=== PATIENT | female | born 1970 | race Caucasian/White ===

== ENCOUNTER 2017-03-16 17:04 | Emergency (ER) | payer OTHER ==
[~2017-03-16] VITALS: Ht 154.9 cm; Wt 100.0 kg
[~2017-03-16 17:04] MED LIST: ALBU1AER INH; ALBU8I INH; CETI10 PO; CYMB60CA PO; FLOV110A INH; HYOS0.129 PO; LIPI20TA PO; MEDR4PAK3 PO; NEUR300C PO; OXYC1SOL5 PO; PANT40IN3 PO; PHEN30TA32 PO; PROM25TA5 PO; SERO100T PO; VITA200017 PO; VITA500T49 PO; XANA1TAB6 PO
[2017-03-16 17:05] VITALS: BP 144/100; PULSE 124; RESP 24; TEMP 97.7; O2SAT 92
--- NOTE | 2017-03-16 17:21 | PD ---
HPI . Swallowed an open safety pin earlier today Chief Complaint: Foreign Body Time Seen by Provider: 17:16 Travel History International Travel<30 days: No Contact w/Intl Traveler<30days: No Traveled to known affect area: No History of Present Illness HPI 46-year-old female with multiple medical problems including seizure disorder, hyperlipidemia, restless leg syndrome, rheumatoid arthritis, bipolar disorder, anxiety here with complaints of swallowing an open safety pin earlier today. Patient tells me that her daughter was trying to pierced tip of her tongue when the patient jumped, therefore causing the daughter to jump. The open safety pin then lodged into her throat and she asked that we swallowed it. He immediately felt something poking her in her throat. She started drinking large amounts of water and thinks that she has consumed over a gallon worth of water. She tells me she has since he in 3 [employer] sandwiches and she continues to experience pain in her throat and chest. She describes it as a sharp pain rated 8/10 on a pain scale. She says she came to the emergency room because the pain would not subside. She denies any other associated symptoms. PFSH Past Medical History Hx Anticoagulant Therapy: No Asthma: Yes Bipolar Disorder: Yes (manic depressive) Anxiety: Yes Depression: Yes Heart Rhythm Problems: Yes (PALPITATIONS, TACHY) Cancer: No Cardiac Catheterization: Yes Cardiovascular Problems: Yes (CARDIAC CATH NO STENTS) High Cholesterol: Yes Chemotherapy: No Chest Pain: Yes Congestive Heart Failure: No Cerebrovascular Accident: No Diabetes: No Diminished Hearing: No Diverticulitis: Yes Endocrine: No Fibromyalgia: Yes Gastrointestinal Disorders: Yes (GI BLEED) Genitourinary: Yes Hypertension: Yes Immune Disorder: No Implanted Vascular Access Dvce: Yes Kidney Stones: Yes Musculoskeletal: Yes (BILAT FOOT/ANKLE SURGERIES, FX'D RIGHT 8 TIMES) Neurologic: Yes (SEIZURES AFTER HEAD INJURY 2010, MIGRAINES) Psychiatric: Yes Reproductive: No Respiratory: Yes (ASTHMA) Immunizations Current: Yes Migraines: Yes Seizures: Yes Ulcer: Yes (peptic) ?: Not Dilation and Curettage (D&C): Yes Past Surgical History Abdominal Surgery: Yes (BLADDER SLING REMOVAL, oophorectomy) Appendectomy: Yes Body Medical Devices: RIGHT BLADDER MESH STILL IN Cholecystectomy: Yes Hysterectomy: Yes Other Surgery: Yes (BILAT FOOT AND ANKLE SURGERIES, RIGHT JAW, cervical rib ) Social History Alcohol Use: Yes (RARELY) Tobacco Use: No (quit) Substance Use: No Allergies-Medications (Allergen,Severity, Reaction): Coded Allergies: Cipro (Verified Allergy, Severe, Hives, 03/16/17) Contrast Media (Verified Allergy, Severe, Hives, 03/16/17) Diazepam (Verified Allergy, Severe, Hives, 03/16/17) Geodon (Verified Allergy, Severe, swelling of face , 03/16/17) Macrobid (Verified Allergy, Severe, Hives, 03/16/17) Penicillin (Verified Allergy, Severe, Anaphylaxis, 03/16/17) Reglan (Verified Allergy, Severe, Seizures, 03/16/17) Shellfish (Verified Allergy, Severe, Anaphylaxis, 03/16/17) Sulfa (Verified Allergy, Severe, Anaphylaxis, 03/16/17) Ultram (Verified Allergy, Severe, Hives, 03/16/17) Toradol (Verified Allergy, Intermediate, HIVES, 03/16/17) Topamax (Unverified Allergy, Mild, 03/16/17) Doxycycline (Verified Allergy, Unknown, Itching, 03/16/17) Nonsteroidal Anti-Inflammatory Agts (Verified Allergy, Unknown, Hives, 07/23) Uncoded Allergies: PROVACHOL (Allergy, Intermediate, RASH, 02/09/16) Reported Meds & Prescriptions Reported Meds & Active Scripts Active Reported Aspirin 81 Mg Chew 81 Mg CHEW DAILY Proair Hfa 8.5 GM Inh (Albuterol Sulfate) 90 Mcg/Act Aer 2 Puff INH BID PRN 108 mcg/actuation Phenobarbital 32.4 Mg Tab 32.4 Mg PO BID Lopid (Gemfibrozil) 600 Mg Tab 600 Mg PO BIDAC Take 30 minutes prior to breakfast and dinner Tegretol (Carbamazepine) 200 Mg Tab 200 Mg PO BID Cymbalta DR (Duloxetine HCl) 60 Mg Capdr 60 Mg PO BID Hyoscyamine (Hyoscyamine Sulfate) 0.125 Mg Tab 0.125 Mg PO DAILY Klonopin (Clonazepam) 0.5 Mg Tab 0.5 Mg PO BID Neurontin (Gabapentin) 300 Mg Cap 300 Mg PO BID Famotidine 10 Mg Tab 10 Mg PO BID Phenobarbital 32.4 Mg Tab 32.4 Mg PO BID Review of Systems General / Constitutional: No: Fever Eyes: No: Visual changes HENT: Positive: Sore Throat, No: Headaches Cardiovascular: Positive: Other (chest burning), No: Chest Pain or Discomfort Respiratory: No: Shortness of Breath Gastrointestinal: No: Abdominal Pain Genitourinary: No: Dysuria Musculoskeletal: No: Pain Skin: No Rash Neurologic: No: Weakness Psychiatric: No: Depression Endocrine: No: Polydipsia Hematologic/Lymphatic: No: Easy Bruising Physical Exam Narrative GENERAL: AAO x 3, no acute distress, Well-nourished, well-developed patient. SKIN: Warm and dry. No visible rashes or bruising. HEAD: Normocephalic and atraumatic. EYES: No scleral icterus. No injection or drainage. EOM intact, PERRLA ENT: No nasal drainage noted. Mucous membranes pink. Airway patent. No oropharynx abnormality. NECK: Supple, trachea midline. No JVD. No tenderness to palpation. CARDIOVASCULAR: Regular rate and rhythm without murmurs, gallops, or rubs. RESPIRATORY: Breath sounds equal bilaterally. No accessory muscle use. No rhonchi or rales. GASTROINTESTINAL: Abdomen soft, epigastric tenderness on palpation. EXTREMITIES: No cyanosis or edema. BACK: Nontender without obvious deformity. No CVA tenderness. NEURO: CN II-12 intact, PSYCH: AAO x 3, normal affect. Data Data Last Documented VS Vital Signs Date Time Temp Pulse Resp B/P Pulse Ox O2 Delivery O2 Flow Rate FiO2 03/16/17 19:21 85 18 123/60 99 Room Air 03/16/17 17:05 97.7 Orders Basic Metabolic Panel (Bmp) (03/16/17 17:21) Complete Blood Count With Diff (03/16/17 17:21) Prothrombin Time / Inr (Pt) (03/16/17 17:21) Act Partial Throm Time (Ptt) (03/16/17 17:21) Iv Access Insert/Monitor (03/16/17 17:21) NPO (03/16/17 17:21) Chest, Pa & Lat (03/16/17 ) Vascular Access Team Consult/P PRN (03/16/17 18:18) Vascular Poc Ultrasound (03/16/17 ) Ondansetron Inj (Zofran Inj) (03/16/17 19:15) Morphine Inj (Morphine Inj) (03/16/17 19:15) Labs Laboratory Tests Test 03/16/17 03/16/17 19:04 19:33 White Blood Count 6.3 TH/MM3 Red Blood Count 4.05 MIL/MM3 Hemoglobin 11.4 GM/DL Hematocrit 34.8 % Mean Corpuscular Volume 85.9 FL Mean Corpuscular Hemoglobin 28.1 PG Mean Corpuscular Hemoglobin 32.7 % Concent Red Cell Distribution Width 13.1 % Platelet Count 164 TH/MM3 Mean Platelet Volume 10.0 FL Neutrophils (%) (Auto) 56.5 % Lymphocytes (%) (Auto) 35.5 % Monocytes (%) (Auto) 7.4 % Eosinophils (%) (Auto) 0.1 % Basophils (%) (Auto) 0.5 % Neutrophils # (Auto) 3.5 TH/MM3 Lymphocytes # (Auto) 2.2 TH/MM3 Monocytes # (Auto) 0.5 TH/MM3 Eosinophils # (Auto) 0.0 TH/MM3 Basophils # (Auto) 0.0 TH/MM3 CBC Comment DIFF FINAL Differential Comment Sodium Level 142 MEQ/L Potassium Level 3.2 MEQ/L Chloride Level 112 MEQ/L Carbon Dioxide Level 18.7 MEQ/L Anion Gap 11 MEQ/L Blood Urea Nitrogen 9 MG/DL Creatinine 0.49 MG/DL Estimat Glomerular Filtration 136 ML/MIN Rate Random Glucose 87 MG/DL Calcium Level 7.5 MG/DL Prothrombin Time 11.0 SEC Prothromb Time International 1.0 RATIO Ratio Activated Partial 24.0 SEC Thromboplast Time MDM Medical Decision Making Medical Screen Exam Complete: Yes Emergency Medical Condition: Yes Medical Record Reviewed: Yes Differential Diagnosis Ingestion of foreign body, hyponatremia, Narrative Course 46-year-old female here after swallowing an open safety pin. Labs and x-rays have been ordered. IV access team had to be contacted for placement of line as patient was a difficult stick for nursing staff. This delayed her labs a little bit. CXR shows pin in the esophagus. Dr. Gonzalez has discussed with GI and they will take patient to endoscopy to remove. Patient given Morphine and Zofran. 2000: Patient taken to GI lab. Diagnosis Primary Impression: Foreign body in throat Qualified Code: T17.208A - Foreign body in throat, initial encounter Condition: Stable Shanna Ramirez Mar 16, 2017 17:21
[2017-03-16] MEDS ORDERED: HYOS0.128 PO (17:31)
[2017-03-16] MEDS ORDERED: GEMF600 PO (17:31)
[2017-03-16] MEDS ORDERED: PHEN-414 PO (17:31)
[2017-03-16] MEDS ORDERED: TEGR200T PO (17:31)
[2017-03-16] MEDS ORDERED: ALBUAER3 INH (17:31)
[2017-03-16] MEDS ORDERED: NEUR300C PO (17:31)
[2017-03-16] MEDS ORDERED: CYMB60CA PO (17:31)
[2017-03-16] MEDS ORDERED: CLON.5 PO (17:31)
[2017-03-16] MEDS ORDERED: FAMO1TAB30 PO (17:31)
[2017-03-16] MEDS ORDERED: ASPI81CH CHEW (17:34)
--- NOTE | 2017-03-16 17:38 | PD ---
Physical Exam Narrative Patient was seen and examined with my medical staff assistant. Data Data Last Documented VS Vital Signs Date Time Temp Pulse Resp B/P Pulse Ox O2 Delivery O2 Flow Rate FiO2 03/16/17 21:30 98.0 83 15 100/62 96 Room Air 03/16/17 20:46 2 Orders Basic Metabolic Panel (Bmp) (03/16/17 17:21) Complete Blood Count With Diff (03/16/17 17:21) Prothrombin Time / Inr (Pt) (03/16/17 17:21) Act Partial Throm Time (Ptt) (03/16/17 17:21) Iv Access Insert/Monitor (03/16/17 17:21) NPO (03/16/17 17:21) Chest, Pa & Lat (03/16/17 ) Vascular Access Team Consult/P PRN (03/16/17 18:18) Vascular Poc Ultrasound (03/16/17 ) Ondansetron Inj (Zofran Inj) (03/16/17 19:15) Morphine Inj (Morphine Inj) (03/16/17 19:15) Panendo (03/16/17 ) [facility] Nursing Information (03/16/17 20:45) Propofol 200 Mg/20 Ml Inj (Diprivan 200 (03/16/17 20:33) Sodium Chloride 0.9% Flush (Ns Flush) (03/17/17 09:00) Sodium Chloride 0.9% Flush (Ns Flush) (03/16/17 21:15) Clonazepam (Klonopin) (03/16/17 21:00) Carbamazepine (Tegretol) (03/16/17 21:00) Gemfibrozil (Lopid) (03/17/17 07:00) Famotidine (Pepcid) (03/16/17 21:00) Gabapentin (Neurontin) (03/16/17 21:00) Phenobarbital (Phenobarbital) (03/16/17 21:00) Class V Pacu Ea 30 Min (03/16/17 ) General/Pacu (03/16/17 ) Post Anesthesia Oxygen (03/16/17 ) Attending Discharge Order (03/16/17 ) Admit Order (Ed Use Only) (03/16/17 20:00) Labs Laboratory Tests Test 03/16/17 03/16/17 19:04 19:33 White Blood Count 6.3 TH/MM3 Red Blood Count 4.05 MIL/MM3 Hemoglobin 11.4 GM/DL Hematocrit 34.8 % Mean Corpuscular Volume 85.9 FL Mean Corpuscular Hemoglobin 28.1 PG Mean Corpuscular Hemoglobin 32.7 % Concent Red Cell Distribution Width 13.1 % Platelet Count 164 TH/MM3 Mean Platelet Volume 10.0 FL Neutrophils (%) (Auto) 56.5 % Lymphocytes (%) (Auto) 35.5 % Monocytes (%) (Auto) 7.4 % Eosinophils (%) (Auto) 0.1 % Basophils (%) (Auto) 0.5 % Neutrophils # (Auto) 3.5 TH/MM3 Lymphocytes # (Auto) 2.2 TH/MM3 Monocytes # (Auto) 0.5 TH/MM3 Eosinophils # (Auto) 0.0 TH/MM3 Basophils # (Auto) 0.0 TH/MM3 CBC Comment DIFF FINAL Differential Comment Sodium Level 142 MEQ/L Potassium Level 3.2 MEQ/L Chloride Level 112 MEQ/L Carbon Dioxide Level 18.7 MEQ/L Anion Gap 11 MEQ/L Blood Urea Nitrogen 9 MG/DL Creatinine 0.49 MG/DL Estimat Glomerular Filtration 136 ML/MIN Rate Random Glucose 87 MG/DL Calcium Level 7.5 MG/DL Prothrombin Time 11.0 SEC Prothromb Time International 1.0 RATIO Ratio Activated Partial 24.0 SEC Thromboplast Time [facility] Supervised Visit with SOHA: Yes Narrative Course Patient was taken to GI lab for endoscopy and discharged from there. Patient will be admitted to same day care. Diagnosis Primary Impression: Foreign body in esophagus Qualified Code: T18.108A - Foreign body in esophagus, initial encounter Condition: Stable Kristian Gonzalez MD Mar 16, 2017 17:38
--- NOTE | 2017-03-16 18:06 | RADRPT ---
EXAM DATE/TIME: 03/16/2017 17:42 [place] COMPARISON: No previous studies available for comparison. INDICATIONS : Foreign body, Patient swallowed a saftey pin MEDICAL HISTORY : None. SURGICAL HISTORY : None. ENCOUNTER: Initial ACUITY: 1 day PAIN SCORE: 10/10 LOCATION: Bilateral chest FINDINGS: PA and lateral views of the chest demonstrate the lungs to be symmetrically aerated without evidence of mass, infiltrate or effusion. A metallic foreign body consistent with a safety pin is seen lodged within the thoracic esophagus just cephalad to the aortic arch level. The pointed end appears embedde d within the wall anteriorly and may enter the posterior wall of the trachea. The cardiomediastinal contours are unremarkable. Osseous structures are intact. CONCLUSION: 1. Foreign body within the thoracic esophagus as detailed above. Alon Underwood Jr., MD on March 16, 2017 at 18:02 Board Certified Radiologist. This report was verified electronically.
[2017-03-16] MEDS ORDERED: MORPHINE SULFATE 4 MG/ML INJ IV PUSH ONE (19:15)
[2017-03-16] MEDS ORDERED: ONDANSETRON HCL 4 MG/2 ML VIAL IV PUSH ONE (19:15)
[2017-03-16 19:21] VITALS: BP 123/60; PULSE 85; RESP 18; O2SAT 99
[2017-03-16 19:21] LABS: AUTOMATED NEUTROPHIL # 3.5 TH/MM3 (1.8-7.7); BASOPHIL % 0.5 % (0.0-2.0); EOSINOPHIL % 0.1 % (0.0-4.0); HEMATOCRIT 34.8 % (35.0-46.0); HEMO FLAGS DIFF FINAL; LYMPH % 35.5 % (9.0-44.0); LYMPHOCYTE # 2.2 TH/MM3 (1.0-4.8); MEAN CELL VOLUME 85.9 FL (80.0-100.0); MEAN CORPUSCULAR HEMOGLOBIN 28.1 PG (27.0-34.0); MEAN CORPUSCULAR HGB CONC 32.7 % (32.0-36.0); MONO % 7.4 % (0.0-8.0); NEUT % 56.5 % (16.0-70.0); PLATELET COUNT 164 TH/MM3 (150-450); RED BLOOD COUNT 4.05 MIL/MM3 (4.00-5.30); RED CELL DISTRIBUTION WIDTH 13.1 % (11.6-17.2); WHITE BLOOD COUNT 6.3 TH/MM3 (4.0-11.0)
[2017-03-16 19:58] LABS: BICARBONATE 18.7 MEQ/L (21.0-32.0); POTASSIUM 3.2 MEQ/L (3.5-5.1)
[2017-03-16] MEDS ORDERED: PROPOFOL 200 MG/20 ML AMP IV ONE (20:33)
[2017-03-16] MEDS ORDERED: DO NOT ADM ANY ANTICOAGULANT DRUGS PRN (20:45)
--- NOTE | 2017-03-16 20:53 | PD.CONS ---
HPI History of Present Illness This is a 46 year old female who presents to the emergency department with complaints of having swallowed a safety pen that was open she complains of chest pain this is her first time she does have history of reflux and takes famotidine but denies any history of dysphagia she does report that she had recently eaten 3 sandwiches [facility] Past Medical History seizure disorder, hyperlipidemia, restless leg syndrome, rheumatoid arthritis, bipolar disorder, anxiety Past Surgical History Abdominal Surgery: Yes (BLADDER SLING REMOVAL, oophorectomy) Appendectomy: Yes Body Medical Devices: RIGHT BLADDER MESH STILL IN Cholecystectomy: Yes Hysterectomy: Yes Other Surgery: Yes (BILAT FOOT AND ANKLE SURGERIES, RIGHT JAW, cervical rib ) Coded Allergies: Cipro (Verified Allergy, Severe, Hives, 03/16/17) Contrast Media (Verified Allergy, Severe, Hives, 03/16/17) Diazepam (Verified Allergy, Severe, Hives, 03/16/17) Geodon (Verified Allergy, Severe, swelling of face , 03/16/17) Macrobid (Verified Allergy, Severe, Hives, 03/16/17) Penicillin (Verified Allergy, Severe, Anaphylaxis, 03/16/17) Reglan (Verified Allergy, Severe, Seizures, 03/16/17) Shellfish (Verified Allergy, Severe, Anaphylaxis, 03/16/17) Sulfa (Verified Allergy, Severe, Anaphylaxis, 03/16/17) Ultram (Verified Allergy, Severe, Hives, 03/16/17) Toradol (Verified Allergy, Intermediate, HIVES, 03/16/17) Topamax (Unverified Allergy, Mild, 03/16/17) Doxycycline (Verified Allergy, Unknown, Itching, 03/16/17) Nonsteroidal Anti-Inflammatory Agts (Verified Allergy, Unknown, Hives, 07/23) Uncoded Allergies: PROVACHOL (Allergy, Intermediate, RASH, 02/09/16) Medications Aspirin 81 Mg Chew 81 Mg CHEW DAILY Proair Hfa 8.5 GM Inh (Albuterol Sulfate) 90 Mcg/Act Aer 2 Puff INH BID PRN 108 mcg/actuation Phenobarbital 32.4 Mg Tab 32.4 Mg PO BID Lopid (Gemfibrozil) 600 Mg Tab 600 Mg PO BIDAC Take 30 minutes prior to breakfast and dinner Tegretol (Carbamazepine) 200 Mg Tab 200 Mg PO BID Cymbalta DR (Duloxetine HCl) 60 Mg Capdr 60 Mg PO BID Hyoscyamine (Hyoscyamine Sulfate) 0.125 Mg Tab 0.125 Mg PO DAILY Klonopin (Clonazepam) 0.5 Mg Tab 0.5 Mg PO BID Neurontin (Gabapentin) 300 Mg Cap 300 Mg PO BID Famotidine 10 Mg Tab 10 Mg PO BID Phenobarbital 32.4 Mg Tab 32.4 Mg PO BID Family History Noncontributory Social History Rarely drinks alcohol but does not smoke Review of Systems ROS Review of systems Patient denies any headache dizziness blurry vision, denies any shortness of breath cough fever chills, Denies any palpitations or fatigue denies any polyuria dysuria hematuria, denies any numbness tingling or weakness, denies any skin rash pruritus or jaundice, denies any easy bruising or bleeding tendency, denies any recent change in mood GI Exam Vitals I&O Vital Signs Date Time Temp Pulse Resp B/P Pulse Ox O2 Delivery O2 Flow Rate FiO2 03/16/17 19:21 85 18 123/60 99 Room Air 03/16/17 17:05 97.7 124 24 144/100 92 Room Air Imaging Last 48 hours Impressions Chest X-Ray 03/16/17 0000 Signed Impressions: Service Date/Time: Thursday, March 16, 2017 17:42 - CONCLUSION: 1. Foreign body within the thoracic esophagus as detailed above. Alon Underwood Jr., MD Laboratory Test 03/16/17 03/16/17 19:04 19:33 White Blood Count 6.3 TH/MM3 Red Blood Count 4.05 MIL/MM3 Hemoglobin 11.4 GM/DL Hematocrit 34.8 % Mean Corpuscular Volume 85.9 FL Mean Corpuscular Hemoglobin 28.1 PG Mean Corpuscular Hemoglobin 32.7 % Concent Red Cell Distribution Width 13.1 % Platelet Count 164 TH/MM3 Mean Platelet Volume 10.0 FL Neutrophils (%) (Auto) 56.5 % Lymphocytes (%) (Auto) 35.5 % Monocytes (%) (Auto) 7.4 % Eosinophils (%) (Auto) 0.1 % Basophils (%) (Auto) 0.5 % Neutrophils # (Auto) 3.5 TH/MM3 Lymphocytes # (Auto) 2.2 TH/MM3 Monocytes # (Auto) 0.5 TH/MM3 Eosinophils # (Auto) 0.0 TH/MM3 Basophils # (Auto) 0.0 TH/MM3 CBC Comment DIFF FINAL Differential Comment Sodium Level 142 MEQ/L Potassium Level 3.2 MEQ/L Chloride Level 112 MEQ/L Carbon Dioxide Level 18.7 MEQ/L Anion Gap 11 MEQ/L Blood Urea Nitrogen 9 MG/DL Creatinine 0.49 MG/DL Estimat Glomerular Filtration 136 ML/MIN Rate Random Glucose 87 MG/DL Calcium Level 7.5 MG/DL Prothrombin Time 11.0 SEC Prothromb Time International 1.0 RATIO Ratio Activated Partial 24.0 SEC Thromboplast Time Physical Examination HEENT: Pupils round and reactive to light; normocephalic; atraumatic; no jaundice. Throat is clear. NECK: Neck is supple, no JVD, no lymphadenopathy. CHEST: Chest is clear to auscultation and percussion. CARDIAC: Regular rate and rhythm with no murmur gallop or rubs. ABDOMEN: Soft, nondistended, nontender; no hepatosplenomegaly; bowel sounds are present in all four quadrants. EXTREMITIES: No clubbing, cyanosis, or edema. SKIN: Normal; no rash; no jaundice. SAFETY ADMINISTRATOR: No focal deficits; alert and oriented times three. Assessment and Plan Plan Foreign body in the esophagus We will plan on an EGD Further recommendations shall depend on the findings Rajinder Corona MD Mar 16, 2017 20:53
--- NOTE | 2017-03-16 20:55 | PD.PROCEDR ---
GI Procedure REFERRING PHYSICIAN Emergency department PROCEDURE PERFORMED EGD with foreign body extraction INDICATION FOR PROCEDURE Informed body in the esophagus PROCEDURE: The procedure, risks and benefits were discussed with Ms. Machuca and informed consent was obtained. Anesthesia sedated her with Diprivan. She was placed in the left lateral decubitus position. EGD: The Pentax videoscope was introduced through the oropharynx and advanced to the second portion of the duodenum under direct visualization. Retroflexion was performed in the stomach. FINDINGS: The esophagus there was an open pin facing downwards and it had partially pierced the esophageal wall this was easily removed using a rat-tooth following removal esophageal wall was intact and unremarkable all the way down to the Z line The stomach there was still some residual food but otherwise gastric mucosa was unremarkable Duodenum this was normal ESTIMATED BLOOD LOSS: None SPECIMENS REMOVED: None COMPLICATIONS: None IMPRESSION: Esophageal foreign body PLAN: Postanesthesia monitor Resume home meds Okay for discharge once fully recovered Rajinder Corona MD Mar 16, 2017 20:55
[2017-03-16] MEDS ORDERED: clonazePAM 0.5 MG TAB PO SCH (21:00)
[2017-03-16] MEDS ORDERED: carBAMazepine 200 MG TAB PO SCH (21:00)
[2017-03-16] MEDS ORDERED: PHENobarbital 32.4 MG TAB PO SCH (21:00)
[2017-03-16] MEDS ORDERED: FAMOTIDINE 20 MG TAB PO SCH (21:00)
[2017-03-16] MEDS ORDERED: GABAPENTIN 300 MG CAP PO SCH (21:00)
[2017-03-16] MEDS ORDERED: SODIUM CHLORIDE FLUSH PRN IV FLUSH (21:15)
[2017-03-16 21:30] VITALS: BP 100/62; PULSE 83; RESP 15; TEMP 98; O2SAT 96
[2017-03-17] MEDS ORDERED: GEMFIBROZIL 600 MG TAB PO SCH (07:00)
[2017-03-17] MEDS ORDERED: SODIUM CHLORIDE FLUSH BID IV FLUSH SCH (09:00)
== END 2017-03-16 22:43 | disposition home or self-care (01) ==
LOC: NEPD 17:04
PROC: 0DC58ZZ Extirpation of Matter from Esophagus, Via Natural or Artificial Opening Endoscopic (ICD-10-PCS; principal; 2017-03-16 20:05)
DX: T18.198A Other foreign object in esophagus causing other injury, initial encounter (principal); M79.7 Fibromyalgia; I10 Essential (primary) hypertension; M06.9 Rheumatoid arthritis, unspecified; G40.909 Epilepsy, unspecified, not intractable, without status epilepticus; X58.XXXA Exposure to other specified factors, initial encounter
CPT/HCPCS: 00740; 43247; 71020; 80048; 85025; 85610; 85730; 96374; 96375; 99285; J2270; J2405

== ENCOUNTER 2017-03-18 18:37 | Emergency (ER) | payer OTHER ==
[~2017-03-18] VITALS: Ht 154.9 cm; Wt 100.0 kg
[~2017-03-18 18:37] MED LIST changes: -ALBU1AER INH; -ALBU8I INH; +ALBUAER3 INH; +ASPI81CH CHEW; -CETI10 PO; +CLON.5 PO; +FAMO1TAB30 PO; -FLOV110A INH; +GEMF600 PO; +HYOS0.128 PO; -HYOS0.129 PO; -LIPI20TA PO; -MEDR4PAK3 PO; -OXYC1SOL5 PO; -PANT40IN3 PO; +PHEN-414 PO; -PHEN30TA32 PO; -PROM25TA5 PO; -SERO100T PO; +TEGR200T PO; -VITA200017 PO; -VITA500T49 PO; -XANA1TAB6 PO
[2017-03-18 18:38] VITALS: BP 135/92; PULSE 108; RESP 20; TEMP 98.7; O2SAT 94
--- NOTE | 2017-03-18 19:41 | PD ---
Physical Exam Date Seen by Provider: Mar 18, 2017 Time Seen by Provider: 19:39 Narrative 46 yo female here for evaluation of swollen "terence tack" on her abdomen. Swallow it by accident yesterday while trying to meyers her tongue. Minimal epigastric pain. 12/14. No BM issues. No bleeding. No other medical issues today. Vitals sign stable. Patient awaiting bed placement. Data Data Last Documented VS Vital Signs Date Time Temp Pulse Resp B/P Pulse Ox O2 Delivery O2 Flow Rate FiO2 03/18/17 18:38 98.7 108 20 135/92 94 Room Air [facility] Medical Record Reviewed: Yes Supervised Visit with SOHA: No Lawrence Valdes Mar 18, 2017 19:41
[2017-03-18] MEDS ORDERED: TIZA4CAP3 PO (20:54)
[2017-03-18] MEDS ORDERED: ESTR1TAB PO (20:54)
[2017-03-18] MEDS ORDERED: ALBUAER3 INH (20:54)
[2017-03-18] MEDS ORDERED: CYMB60CA PO (20:54)
[2017-03-18] MEDS ORDERED: GEMF600T PO (20:54)
[2017-03-18] MEDS ORDERED: LURA1TAB2 PO (20:54)
[2017-03-18] MEDS ORDERED: TEGR200T PO (20:54)
[2017-03-18] MEDS ORDERED: PHEN-414 PO (20:54)
[2017-03-18] MEDS ORDERED: FAMO20TA2 PO (20:54)
[2017-03-18] MEDS ORDERED: KLON2TAB PO (20:54)
[2017-03-18] MEDS ORDERED: MILKSUS PO (20:57)
== END 2017-03-18 21:14 | disposition left against medical advice (07) ==
LOC: NED 18:37
DX: T18.0XXA Foreign body in mouth, initial encounter (principal)
CPT/HCPCS: 99281

== ENCOUNTER 2017-03-18 20:16 | Observation (INO) | payer OTHER ==
[~2017-03-18] VITALS: Ht 154.9 cm; Wt 96.3 kg
[2017-03-18 20:21] VITALS: BP 140/90; PULSE 112; RESP 20; TEMP 99.2; O2SAT 96
[2017-03-18 20:35] VITALS: BP 137/74; PULSE 100; RESP 18; O2SAT 97
[2017-03-18] MEDS ORDERED: TEGR200T PO (20:54)
[2017-03-18] MEDS ORDERED: ALBUAER3 INH (20:54)
[2017-03-18] MEDS ORDERED: FAMO20TA2 PO (20:54)
[2017-03-18] MEDS ORDERED: GEMF600T PO (20:54)
[2017-03-18] MEDS ORDERED: ESTR1TAB PO (20:54)
[2017-03-18] MEDS ORDERED: LURA1TAB2 PO (20:54)
[2017-03-18] MEDS ORDERED: CYMB60CA PO (20:54)
[2017-03-18] MEDS ORDERED: KLON2TAB PO (20:54)
[2017-03-18] MEDS ORDERED: TIZA4CAP3 PO (20:54)
[2017-03-18] MEDS ORDERED: PHEN-414 PO (20:54)
[2017-03-18] MEDS ORDERED: MILKSUS PO (20:57)
--- NOTE | 2017-03-18 21:12 | PD ---
HPI Chief Complaint: Abdominal Pain Time Seen by Provider: 21:07 Travel History International Travel<30 days: No Contact w/Intl Traveler<30days: No Traveled to known affect area: No History of Present Illness HPI 46 year old female presents to the emergency department by private transportation for complaint of abdominal pain. Patient reports that yesterday she was attempting to her on time with a thumbtack at home and accidentally swallowed thumbtack. Patient reports last evening she started noticing some abdominal discomfort and today her pain increased. Patient denies any shortness of breath hemoptysis coffee-ground emesis or hematemesis also denies any melena hematochezia. Patient denies any bowel movement since yesterday. PFSH Past Medical History Narrative Medical Epilepsy bipolar disorder rheumatoid arthritis hysterectomy; tobacco use: Nursing notes reviewed Past Surgical History Hysterectomy: Yes Social History Tobacco Use: Yes Allergies-Medications (Allergen,Severity, Reaction): Coded Allergies: Cipro (Verified Allergy, Unknown, Itching, 03/18/17) Flagyl (Verified Allergy, Unknown, Itching, 03/18/17) Geodon (Verified Allergy, Unknown, Rash, 03/18/17) Ibuprofen (Verified Allergy, Unknown, Anaphylaxis, 03/18/17) Macrobid (Verified Allergy, Unknown, Itching, 03/18/17) Macrodantin (Verified Allergy, Unknown, Itching, 03/18/17) Penicillin (Verified Allergy, Unknown, Anaphylaxis, 03/18/17) Reglan (Verified Allergy, Unknown, 03/18/17) Because of seizure disorder Sulfa (Verified Allergy, Unknown, Hives, 03/18/17) Topamax (Verified Allergy, Unknown, Psychosis, 03/18/17) Toradol (Verified Allergy, Unknown, Swelling, 03/18/17) Ultram (Verified Allergy, Unknown, Hives, 03/18/17) Reported Meds & Prescriptions Reported Meds & Active Scripts Active Reported Milk of Magnesia Liq (Magnesium Hydroxide) 400 Mg/5 Ml Susp 45 Ml PO Q6H PRN Cymbalta DR (Duloxetine HCl) 60 Mg Capdr 60 Mg PO DAILY Latuda (Lurasidone) 60 Mg Tab 60 Mg PO HS Tizanidine (Tizanidine HCl) 4 Mg Cap 4 Mg PO HS Klonopin (Clonazepam) 2 Mg Tab 2 Mg PO BID Famotidine 20 Mg Tab 20 Mg PO BID Proair Hfa 8.5 GM Inh (Albuterol Sulfate) 90 Mcg/Act Aer 2 Puff INH QID 108 mcg/actuation Gemfibrozil 600 Mg Tab 600 Mg PO BIDAC Take 30 minutes prior to breakfast and dinner. Tegretol (Carbamazepine) 200 Mg Tab 200 Mg PO BID Phenobarbital 32.4 Mg Tab 32.4 Mg PO BID Estradiol 1 Mg Tab 1 Mg PO DAILY Review of Systems Except as stated in HPI: all other systems reviewed are Neg General / Constitutional: No: Fever HENT: No: Congestion Cardiovascular: No: Chest Pain or Discomfort Respiratory: No: Shortness of Breath Gastrointestinal: Positive: Nausea, Abdominal Pain, No: Vomiting, Diarrhea Genitourinary: No: Dysuria Musculoskeletal: No: Myalgias, Arthralgias Skin: No Rash Neurologic: No: Weakness Psychiatric: No: Anxiety Hematologic/Lymphatic: No: Lymph Node Enlargement Physical Exam Narrative GENERAL: Well-developed well-nourished obese female no acute distress no respiratory distress SKIN: Warm and dry. HEAD: Normocephalic. EYES: No scleral icterus. No injection or drainage. NECK: Supple, trachea midline. No JVD or lymphadenopathy. CARDIOVASCULAR: Regular rate and rhythm without murmurs, gallops, or rubs. RESPIRATORY: Breath sounds equal bilaterally. No accessory muscle use. GASTROINTESTINAL: Abdomen soft, mildly diffusely tender no guarding or rebound nondistended soft, nondistended. MUSCULOSKELETAL: No cyanosis, or edema. BACK: Nontender without obvious deformity. No CVA tenderness. Data Data Last Documented VS Vital Signs Date Time Temp Pulse Resp B/P Pulse Ox O2 Delivery O2 Flow Rate FiO2 03/19/17 00:50 88 16 117/69 96 Room Air 03/18/17 20:21 99.2 Orders Abdomen, Flat & Upright (03/18/17 ) ^ Saline Lock (03/18/17 21:12) Complete Blood Count With Diff (03/18/17 21:12) Basic Metabolic Panel (Bmp) (03/18/17 21:12) Urinalysis - C+S If Indicated (03/18/17 21:12) Morphine Inj (Morphine Inj) (03/18/17 21:30) Ondansetron Inj (Zofran Inj) (03/18/17 21:30) Ct Abd/Pel W Iv Contrast(Rout) (03/18/17 ) Sodium Chlor 0.9% 1000 Ml Inj (Ns 1000 M (03/18/17 23:00) Methylprednisolone So Succ Inj (Solumedr (03/18/17 23:00) Diphenhydramine Inj (Benadryl Inj) (03/18/17 23:00) Morphine Inj (Morphine Inj) (03/18/17 23:00) Iohexol 350 Inj (Omnipaque 350 Inj) (03/19/17 01:20) Place In Observation (03/19/17 ) Vital Signs (Adult) Q4H (03/19/17 01:46) Activity Oob Ad Amanda (03/19/17 01:46) Colorer Hides And Skins / Telemetry .CONTINUOUS (03/19/17 01:46) Diet Npo (03/19/17 Breakfast) Sodium Chlor 0.9% 1000 Ml Inj (Ns 1000 M (03/19/17 01:46) Sodium Chloride 0.9% Flush (Ns Flush) (03/19/17 02:00) Sodium Chloride 0.9% Flush (Ns Flush) (03/19/17 09:00) Naloxone Inj (Narcan Inj) (03/19/17 02:00) Consult General Surgery (03/19/17 ) Admit Order (Ed Use Only) (03/19/17 ) ^ Saline Lock (03/19/17 01:46) Resp Oxygen Shay C Titrat 1-4 L (03/19/17 ) Notify Dr: Other (03/19/17 01:46) Sodium Chloride 0.9% Flush (Ns Flush) (03/19/17 09:00) Sodium Chloride 0.9% Flush (Ns Flush) (03/19/17 02:00) Consult General Surgery (03/19/17 ) Labs Laboratory Tests Test 03/18/17 03/18/17 21:32 21:51 White Blood Count 6.0 TH/MM3 Red Blood Count 4.21 MIL/MM3 Hemoglobin 12.0 GM/DL Hematocrit 35.7 % Mean Corpuscular Volume 84.8 FL Mean Corpuscular Hemoglobin 28.5 PG Mean Corpuscular Hemoglobin 33.7 % Concent Red Cell Distribution Width 12.9 % Platelet Count 157 TH/MM3 Mean Platelet Volume 9.7 FL Neutrophils (%) (Auto) 60.6 % Lymphocytes (%) (Auto) 33.8 % Monocytes (%) (Auto) 4.9 % Eosinophils (%) (Auto) 0.2 % Basophils (%) (Auto) 0.5 % Neutrophils # (Auto) 3.7 TH/MM3 Lymphocytes # (Auto) 2.0 TH/MM3 Monocytes # (Auto) 0.3 TH/MM3 Eosinophils # (Auto) 0.0 TH/MM3 Basophils # (Auto) 0.0 TH/MM3 CBC Comment DIFF FINAL Differential Comment Sodium Level 145 MEQ/L Potassium Level 3.6 MEQ/L Chloride Level 112 MEQ/L Carbon Dioxide Level 24.9 MEQ/L Anion Gap 8 MEQ/L Blood Urea Nitrogen 6 MG/DL Creatinine 0.62 MG/DL Estimat Glomerular Filtration 104 ML/MIN Rate Random Glucose 92 MG/DL Calcium Level 8.2 MG/DL Urine Color YELLOW Urine Turbidity CLEAR Urine pH 6.5 Urine Specific [place] 1.017 Urine Protein NEG mg/dL Urine Glucose (UA) NEG mg/dL Urine Ketones 40 mg/dL Urine Occult Blood NEG Urine Nitrite NEG Urine Bilirubin NEG Urine Leukocyte Esterase NEG Urine RBC 0-3 /hpf Urine WBC 3-5 /hpf Urine Squamous Epithelial 6-8 /hpf Cells Urine Bacteria FEW /hpf Microscopic Urinalysis Comment CULT NOT INDICATED MDM Medical Decision Making Medical Screen Exam Complete: Yes Emergency Medical Condition: Yes Medical Record Reviewed: Yes Interpretation(s) Last Impressions Abdomen X-Ray 03/18/17 0000 Signed Impressions: Service Date/Time: Saturday, March 18, 2017 21:13 - CONCLUSION: The foreign body is in the cecum. No free air or obstruction. Amilcar Krause MD CBC & BMP Diagram 03/18/17 21:32 Vital Signs Date Time Temp Pulse Resp B/P Pulse Ox O2 Delivery O2 Flow Rate FiO2 03/18/17 21:41 17 03/18/17 20:35 100 18 137/74 97 Room Air 03/18/17 20:21 99.2 112 20 140/[address] abd/pel: FINDINGS: CT Abdomen: The liver, spleen, pancreas, kidneys, adrenals are unremarkable. There is no evidence for any appreciable pathological adenopathy, free fluid, or bowel obstruction. There is evidence for prior cholecystectomy. There is a tiny subcentimeter groundglass nodule in the lingula anterolaterally most likely benign and may be a small area of scar. CT pelvis: There is no evidence for mass, abscess formation, or any significant adenopathy within the pelvis. There is a small subcentimeter bone island in the right acetabulum. There is narrowing of the sigmoid colon which extends for 3.8 cm probably due to spasm, however underlying mass is difficult to exclude. There is a radiopaque density in the patient's cecum which measures 1.7 centimeters in length may be the swallowed tack. CONCLUSION: 1. Swallowed tack is in the patient's cecum and there is probable spasm in the patient's sigmoid colon could be further characterized with sigmoidoscopy based on clinical grounds. 2. Indeterminant, however most likely benign nodule within the lingula and noncontrast chest CT is suggested in 6 months. Trisha Yi MD on March 19, 2017 at 1:04 Board Certified Radiologist. This report was verified electronically. Differential Diagnosis Foreign body ingestion, intestinal perforation, aspiration Narrative Course Imaging study ordered At 9:10 PM patient complains of pain; administered MSO4 and zofran AXR NAD no free air Case discussed with on-call general surgery recommend CT abdomen and pelvis with rectal condition for observation admission to [facility] Patient aware plan for CT abdomen and pelvis with IV contrast reports that she requires premedication with Solu-Medrol 125 mg and Benadryl 50 mg IV prior to undergoing IV contrast CTs as she has an IV sensitivity. Patient states if she takes these medications 30 minutes to 45 minutes prior to imaging she has no adverse sensitivity or reaction to contrast. Patient is identified not to list IV contrast as an allergy. Patient reports that she has had adverse reaction with swelling to IV contrast in the past and subsequently each time she receives an IV contrast CT she is premedicated and has done well without any adverse reaction. Patient has had multiple CT brains with IV contrast due to history of epilepsy and headaches reportedly. Solu-Medrol 125 mg IV and Benadryl 50 mg IV has been ordered along with bolus of normal saline CT abdomen and pelvis performed without any evidence of adverse/allergic reaction however did have infiltration IV site at left antecubital fossa compresses applied. Imaging study reveals evidence of retained intestinal foreign body. As per previous general surgery recommendation for observation call placed to [facility] service for obs w gen surgery consult rec to [facility] Physician Communication Physician Communication discussed with Dr Lomeli CT obs overnight [facility]; call placed to [facility] service Diagnosis Primary Impression: Abdominal pain Qualified Code: R10.31 - Right lower quadrant abdominal pain Additional Impression: Foreign body in intestine Qualified Code: T18.3XXA - Foreign body in intestine, initial encounter Admitting Information Admitting Physician Requests: Observation Freya Stevens MD Mar 18, 2017 21:12
[2017-03-18] MEDS ORDERED: MORPHINE SULFATE 4 MG/ML INJ IV PUSH ONE ×2 (21:30→23:00)
[2017-03-18] MEDS ORDERED: ONDANSETRON HCL 4 MG/2 ML VIAL IV PUSH ONE (21:30)
--- NOTE | 2017-03-18 21:42 | RADHPO ---
EXAM DATE/TIME: 03/18/2017 21:13 [facility] COMPARISON: No previous studies available for comparison. INDICATIONS : Patient states swallower tack yesterday while trying to meyers her tongue. MEDICAL HISTORY : None. SURGICAL HISTORY : Cholecystectomy. Hysterectomy. ENCOUNTER: Initial ACUITY: 2 days PAIN SCORE: 9/10 LOCATION: Abdomen FINDINGS: There is a 12 mm long nail-like metallic structure in the cecum. No free air. Enteric contrast is see n in the colon. Bowel gas pattern is nonobstructive. Cholecystectomy clips are noted. CONCLUSION: The foreign body is in the cecum. No free air or obstruction. Amilcar Krause MD on March 18, 2017 at 21:39 Board Certified Radiologist. This report was verified electronically.
[2017-03-18 21:52] LABS: AUTOMATED NEUTROPHIL # 3.7 TH/MM3 (1.8-7.7); BASOPHIL % 0.5 % (0.0-2.0); EOSINOPHIL % 0.2 % (0.0-4.0); HEMATOCRIT 35.7 % (35.0-46.0); HEMO FLAGS DIFF FINAL; LYMPH % 33.8 % (9.0-44.0); MEAN CELL VOLUME 84.8 FL (80.0-100.0); MEAN CORPUSCULAR HEMOGLOBIN 28.5 PG (27.0-34.0); MEAN CORPUSCULAR HGB CONC 33.7 % (32.0-36.0); MONO % 4.9 % (0.0-8.0); NEUT % 60.6 % (16.0-70.0); PLATELET COUNT 157 TH/MM3 (150-450); RED BLOOD COUNT 4.21 MIL/MM3 (4.00-5.30); RED CELL DISTRIBUTION WIDTH 12.9 % (11.6-17.2)
[2017-03-18 22:00] VITALS: BP 138/75; PULSE 88; RESP 17; O2SAT 98
[2017-03-18 22:00] LABS: POTASSIUM 3.6 MEQ/L (3.5-5.1)
[2017-03-18 22:01] LABS: BLOOD, URINE NEG (NEG); GLUCOSE,URINE NEG (NEG); KETONE, URINE 40 mg/dL (NEG); NITRITE,URINE NEG (NEG); PH, URINE 6.5 (5.0-8.5)
[2017-03-18 22:03] LABS: BICARBONATE 24.9 MEQ/L (21.0-32.0)
[2017-03-18 22:07] LABS: URINE COLOR YELLOW (YELLW/STRAW)
[2017-03-18 22:08] LABS: BACTERIA, URINE FEW /hpf; COMMENT (UR) CULT NOT INDICATED; CULTURE IF INDICATED CULT NOT INDICATED; RBC, URINE 0-3 /hpf (0-3)
[2017-03-18] MEDS ORDERED: SODIUM CHLOR 0.9% 1000 ML INJ 1,000 ML IV SCH (23:00)
[2017-03-18] MEDS ORDERED: methylPREDNISolone SOD SUCC 125 MG/2 ML VIAL IV PUSH ONE (23:00)
[2017-03-18] MEDS ORDERED: diphenhydrAMINE HCL 50 MG/ML VIAL IV PUSH ONE (23:00)
[2017-03-18 23:20] VITALS: BP 112/83; PULSE 86; RESP 16; O2SAT 97
[2017-03-19] VITALS (9 sets, daily range): BP systolic 91–133; BP diastolic 52–74; PULSE 63–88; RESP 16–19; TEMP 97.6–98; O2SAT 93–99
--- NOTE | 2017-03-19 01:12 | RADHPO ---
EXAM DATE/TIME: 03/19/2017 00:17 [facility] COMPARISON: No previous studies available for comparison. INDICATIONS : Lower abdominal pain. Evaluate location of tack that patient swallowed. IV CONTRAST: 65 cc Omnipaque 350 (iohexol) IV ORAL CONTRAST: No oral contrast ingested. RADIATION DOSE: 19.91 CTDIvol (mGy) MEDICAL HISTORY : None SURGICAL HISTORY : Appendectomy. Cholecystectomy.Hysterectomy.Bladder mesh surgery. ENCOUNTER: Initial ACUITY: 1 day PAIN SCALE: 8/10 LOCATION: Bilateral lower quadrant Patient was premedicated for underlying contrast media allergy. TECHNIQUE: Volumetric scanning of the abdomen and pelvis was performed. Using automated exposure control and adjustment of the mA and/or kV according to patient size, radiation dose was kept as low as reasonably achievable to obtain optimal diagnostic quality images. FINDINGS: CT Abdomen: The liver, spleen, pancreas, kidneys, adrenals are unremarkable. There is no evidence for any appreciable pathological adenopathy, free fluid, or bowel obstruction. There is evidence for pr ior cholecystectomy. There is a tiny subcentimeter groundglass nodule in the lingula anterolaterally most likely benign and may be a small area of scar. CT pelvis: There is no evidence for mass, abscess formation, or any significant adenopathy within the pelvis. There is a small subcentimeter bone island in the right acetabulum. There is narrowing of th e sigmoid colon which extends for 3.8 cm probably due to spasm, however underlying mass is difficult to exclude. There is a radiopaque density in the patient's cecum which measures 1.7 centimeters in le ngth may be the swallowed tack. CONCLUSION: 1. Swallowed tack is in the patient's cecum and there is probable spasm in the patient's sigmoid colo n could be further characterized with sigmoidoscopy based on clinical grounds. 2. Indeterminant, however most likely benign nodule within the lingula and noncontrast chest CT is gilmore ggested in 6 months. Trisha Yi MD on March 19, 2017 at 1:04 Board Certified Radiologist. This report was verified electronically.
[2017-03-19] MEDS ORDERED: IOHEXOL 350 MG/ML 10 ML VIAL (for RAD DIAG) IV ONE (01:20)
[2017-03-19] MEDS: SODIUM CHLOR 0.9% 1000 ML INJ 1,000 ML IV SCH ×2 (01:52→10:56)
[2017-03-19] MEDS ORDERED: SODIUM CHLORIDE 0.9% FLUSH 10 ML FLUSH IVF PRN (02:00)
[2017-03-19] MEDS ORDERED: SODIUM CHLORIDE 0.9% FLUSH 10 ML FLUSH IV FLUSH PRN (02:00)
[2017-03-19] MEDS ORDERED: NALOXONE HCL 0.4 MG/ML AMP IV PRN (02:00)
[2017-03-19] MEDS ORDERED: MORPHINE SULFATE 4 MG/ML INJ IV PUSH PRN ×3 (03:00→12:00)
--- NOTE | 2017-03-19 05:57 | HHI.HP ---
HPI Service [facility] Primary Care Physician No Primary Care Physician Admission Diagnosis Abdominal pain; Intestinal foreign body Diagnoses: (1) Abdominal pain (2) Foreign body in intestine Chief Complaint: Abdominal pain Travel History International Travel<30 Days: No Contact w/Intl Traveler <30 Da: No Traveled to Known Affected Are: No History of Present Illness Written by Lexie Lynch, acting as scribe for Dr. Barber on 03/19/17 at 05:57. Patient has a medical record here under the name Nathan Macdonald Caplyric [id number] Ms. Florence is a 46 year-old female with a history of epilepsy, bipolar disorder , and rheumatoid arthritis who accidentally swallowed thumbtack on 03/17/2017 and presented to the emergency room on 03/18/2017 complaining of increasing abdominal pain. CT of pelvis showed radiopaque density in the patients cecum measuring 1.7 cm in length- likely the thumbtack and narrowing of the sigmoid colon which is probably due to spasm. The patient reports that on 03/17/17, she was attempting to meyers her own tongue with a thumbtack and accidentally swallowed the thumbtack. She reported severe abdominal pain that became progressively worse and was associated with nausea. She said that when her daughter was visiting 2 weeks ago, she swallowed a pin during an attempted tongue piercing performed by her daughter and came to the hospital afterwards and had it removed. There is a discrepancy in the patient's history: Records show that she had a panendoscopy with foreign body removal by Dr. Corona on 03/16/17 here for safety pin that she accidentally swallowed when her daughter tried to meyers her tongue - under name of Nathan Macdonald Brigette [id number]. She denies diarrhea, vomiting, or constipation. . Review of Systems Except as stated in HPI: all other systems reviewed are Neg Past Family Social History Past Medical History Epilepsy Bipolar disorder Asthma Rheumatoid arthritis Fibromyalgia Bleeding gastric ulcer GERD Anxiety . Past Surgical History Hysterectomy Appendectomy Cholecystectomy Vaginal mesh for cystocele . Reported Medications Reported Meds & Active Scripts Active Reported Milk of Magnesia Liq (Magnesium Hydroxide) 400 Mg/5 Ml Susp 45 Ml PO Q6H PRN Cymbalta DR (Duloxetine HCl) 60 Mg Capdr 60 Mg PO DAILY Latuda (Lurasidone) 60 Mg Tab 60 Mg PO HS Tizanidine (Tizanidine HCl) 4 Mg Cap 4 Mg PO HS Klonopin (Clonazepam) 2 Mg Tab 2 Mg PO BID Famotidine 20 Mg Tab 20 Mg PO BID Proair Hfa 8.5 GM Inh (Albuterol Sulfate) 90 Mcg/Act Aer 2 Puff INH QID 108 mcg/actuation Gemfibrozil 600 Mg Tab 600 Mg PO BIDAC Take 30 minutes prior to breakfast and dinner. Tegretol (Carbamazepine) 200 Mg Tab 200 Mg PO BID Phenobarbital 32.4 Mg Tab 32.4 Mg PO BID Estradiol 1 Mg Tab 1 Mg PO DAILY . Allergies: Coded Allergies: Cipro (Verified Allergy, Unknown, Itching, 03/18/17) Flagyl (Verified Allergy, Unknown, Itching, 03/18/17) Geodon (Verified Allergy, Unknown, Rash, 03/18/17) Ibuprofen (Verified Allergy, Unknown, Anaphylaxis, 03/18/17) Macrobid (Verified Allergy, Unknown, Itching, 03/18/17) Macrodantin (Verified Allergy, Unknown, Itching, 03/18/17) Penicillin (Verified Allergy, Unknown, Anaphylaxis, 03/18/17) Reglan (Verified Allergy, Unknown, 03/18/17) Because of seizure disorder Sulfa (Verified Allergy, Unknown, Hives, 03/18/17) Topamax (Verified Allergy, Unknown, Psychosis, 03/18/17) Toradol (Verified Allergy, Unknown, Swelling, 03/18/17) Ultram (Verified Allergy, Unknown, Hives, 03/18/17) Active Ordered Medications Current Medications Morphine Sulfate (Morphine Inj) 4 mg ONCE ONCE IV PUSH Last administered on 21:33; Start 03/18/17 at 21:30; Stop 03/18/17 at 21:31; Status DC Ondansetron HCl 4 mg 4 mg ONCE ONCE IV PUSH Last administered on 03/18/17 21: 32; Start 03/18/17 at 21:30; Stop 03/18/17 at 21:31; Status DC Sodium Chloride (NS 1000 ml Inj) 1,000 ml @ 125 mls/hr Q8H IV Last administered on 03/18/17 23:32; Start 03/18/17 at 23:00; Stop 03/19/17 at 01:50 ; Status DC Methylprednisolone Sodium Succinate (SoluMEDROL INJ) 125 mg ONCE ONCE IV PUSH Last administered on 03/18/17 23:16; Start 03/18/17 at 23:00; Stop 03/18/17 at 23:01; Status DC Diphenhydramine HCl (Benadryl Inj) 50 mg ONCE ONCE IV PUSH Last administered on 03/18/17 23:17; Start 03/18/17 at 23:00; Stop 03/18/17 at 23:01; Status DC Morphine Sulfate (Morphine Inj) 2 mg ONCE ONCE IV PUSH Last administered on 23:17; Start 03/18/17 at 23:00; Stop 03/18/17 at 23:01; Status DC Iohexol 60 ml 60 ml STK-MED ONCE IV Last administered on 03/19/17 01:20; Start 03/19/17 at 01:20; Stop 03/19/17 at 01:21; Status DC Sodium Chloride (NS 1000 ml Inj) 1,000 ml @ 100 mls/hr Q10H IV Last administered on 03/19/17 01:52; Start 03/19/17 at 01:46 Sodium Chloride (NS Flush) 2 ml UNSCH PRN IV FLUSH FLUSH AFTER USING IV ACCESS ; Start 03/19/17 at 02:00 Sodium Chloride (NS Flush) 2 ml BID IV FLUSH ; Start 03/19/17 at 09:00 Naloxone HCl (Narcan Inj) 0.4 mg UNSCH PRN IV SEE LABEL COMMENTS; Start at 02:00 Sodium Chloride (NS Flush) 2 ml BID IV FLUSH ; Start 03/19/17 at 09:00; Stop at 09:00; Status DC Sodium Chloride (NS Flush) 2 ml UNSCH PRN IVF FLUSH AFTER USING IV ACCESS; Start 03/19/17 at 02:00; Stop 03/19/17 at 02:00; Status DC Morphine Sulfate (Morphine Inj) 2 mg Q4H PRN IV PUSH pain >5 Last administered on 03/19/17 03:30; Start 03/19/17 at 03:00 Pneumococcal Polyvalent Vaccine (Pneumovax-23 Inj) 25 mcg ONCE ONCE IM ; Start 03/20/17 at 09:00; Stop 03/20/17 at 09:01 . Family History Father with colon cancer, hypertension, hyperlipidemia, dementia, rheumatoid arthritis Mother committed suicide . Social History Tobacco: smokes Alcohol: denies Illicit Drugs: denies . Physical Exam Vital Signs Vital Signs Date Time Temp Pulse Resp B/P Pulse Ox O2 Delivery O2 Flow Rate FiO2 03/19/17 03:38 16 03/19/17 03:25 94 21 03/19/17 03:05 77 19 133/71 97 Room Air 03/19/17 02:05 97.6 74 18 112/74 97 Room Air 03/19/17 00:50 88 16 117/69 96 Room Air 03/18/17 23:25 17 03/18/17 23:20 86 16 112/83 97 Room Air 03/18/17 22:00 88 17 138/75 98 Room Air 03/18/17 21:41 17 03/18/17 20:35 100 18 137/74 97 Room Air 03/18/17 20:21 99.2 112 20 140/90 96 Physical Exam GENERAL: This is an overweight female patient, frequently asking for pain medications to be increased. SKIN: No rashes or lesions. Cool and dry. Multiple tattoos. HEAD: Atraumatic. Normocephalic. EYES: No scleral icterus. No injection or drainage. ENT: Nose without bleeding, purulent drainage. NECK: Trachea midline. No JVD or lymphadenopathy. CARDIOVASCULAR: Regular rate and rhythm without murmurs, gallops, or rubs. RESPIRATORY: Clear to auscultation. Breath sounds equal bilaterally. No wheezes , rales, or rhonchi. GASTROINTESTINAL: Abdomen soft, right lower quadrant abdominal pain worsened with palpation, nondistended. No guarding. MUSCULOSKELETAL: Extremities without clubbing, cyanosis, or edema. No calf tenderness. NEUROLOGICAL: Awake and alert. Motor and sensory grossly within normal limits. Normal speech. . Laboratory Laboratory Tests Test 03/18/17 03/18/17 21:32 21:51 White Blood Count 6.0 Red Blood Count 4.21 Hemoglobin 12.0 Hematocrit 35.7 Mean Corpuscular Volume 84.8 Mean Corpuscular Hemoglobin 28.5 Mean Corpuscular Hemoglobin 33.7 Concent Red Cell Distribution Width 12.9 Platelet Count 157 Mean Platelet Volume 9.7 Neutrophils (%) (Auto) 60.6 Lymphocytes (%) (Auto) 33.8 Monocytes (%) (Auto) 4.9 Eosinophils (%) (Auto) 0.2 Basophils (%) (Auto) 0.5 Neutrophils # (Auto) 3.7 Lymphocytes # (Auto) 2.0 Monocytes # (Auto) 0.3 Eosinophils # (Auto) 0.0 Basophils # (Auto) 0.0 CBC Comment DIFF FINAL Differential Comment Sodium Level 145 Potassium Level 3.6 Chloride Level 112 Carbon Dioxide Level 24.9 Anion Gap 8 Blood Urea Nitrogen 6 Creatinine 0.62 Estimat Glomerular Filtration 104 Rate Random Glucose 92 Calcium Level 8.2 Urine Color YELLOW Urine Turbidity CLEAR Urine pH 6.5 Urine Specific [place] 1.017 Urine Protein NEG Urine Glucose (UA) NEG Urine Ketones 40 Urine Occult Blood NEG Urine Nitrite NEG Urine Bilirubin NEG Urine Leukocyte Esterase NEG Urine RBC 0-3 Urine WBC 3-5 Urine Squamous Epithelial 6-8 Cells Urine Bacteria FEW Microscopic Urinalysis Comment CULT NOT INDICATED Result Diagram: 03/18/17213103/18/172131 Imaging Last Impressions Abdomen/Pelvis CT 03/18/17 0000 Signed Impressions: Service Date/Time: Sunday, March 19, 2017 00:17 - CONCLUSION: 1. Swallowed tack is in the patient's cecum and there is probable spasm in the patient's sigmoid colon could be further characterized with sigmoidoscopy based on clinical grounds. 2. Indeterminant, however most likely benign nodule within the lingula and noncontrast chest CT is suggested in 6 months. KFawn Yi MD Abdomen X-Ray 03/18/17 0000 Signed Impressions: Service Date/Time: Saturday, March 18, 2017 21:13 - CONCLUSION: The foreign body is in the cecum. No free air or obstruction. Amilcar Krause MD . Assessment and Plan Problem List: (1) Abdominal pain ICD Code: R10.9 Status: Acute (2) Foreign body in intestine ICD Code: T18.3XXA Status: Acute Assessment and Plan Ms. Florence is a 46 year-old female with a history of epilepsy, bipolar disorder , and rheumatoid arthritis who accidentally swallowed thumbtack on 03/17/2017 and presented to the emergency room on 03/18/2017 complaining of increasing abdominal pain. CT of pelvis showed radiopaque density in the patients cecum measuring 1.7 cm in length- likely the thumbtack and narrowing of the sigmoid colon which is probably due to spasm. Abdominal pain with foreign body in intestine - Morphine 2 mg IV push every 6 hours as needed for pain - Monitor vital signs every 4 hours - Gentle IV fluid hydration with normal saline at 100 cc per hour - Consult general surgery - Keep NPO Small subcentimeter groundglass nodule in the lingual - Will need outpatient follow-up CT of chest in 6 months for further evaluation Patient has a medical record here under the name Nathan Machuca [id number] . Discussed Condition With ER physician, RN, and patient . Problem Qualifiers (1) Abdominal pain: Qualified Code: R10.31 - Right lower quadrant abdominal pain (2) Foreign body in intestine: Qualified Code: T18.3XXA - Foreign body in intestine, initial encounter Lexie Lynch Mar 19, 2017 05:57
[2017-03-19] MEDS ORDERED: ONDANSETRON HCL 4 MG/2 ML VIAL IV PUSH PRN (06:15)
[2017-03-19] MEDS ORDERED: SODIUM CHLORIDE 0.9% FLUSH 10 ML FLUSH IV FLUSH SCH ×2 (09:00)
--- NOTE | 2017-03-19 09:00 | MB ---
cc: KONRAD LOMELI M.D. AKA: Nathan Machuca DATE OF CONSULTATION March 19, 2017 REASON FOR CONSULTATION Accidentally swallowed a tack while trying to meyers her tongue by herself with a thumb tack. PLEASE NOTE Apparently the patient had previously swallowed a pin of some type earlier this month but she came in and under a different name of Nathan Machuca and her V# at that point was [id number]. So there is some question of who actually she is and what she is trying to hide. HISTORY OF PRESENT ILLNESS She is a 46-year-old female with apparently a history of epilepsy, bipolar disorder, rheumatoid arthritis, although she denies any medical history, who stated she was trying to meyers her tongue with a tack and she accidentally swallowed it. Earlier in the month apparently she tried to do this with a safety pin. Anyway, this happened about two or three days ago and she took some Milk of Magnesia and some Fleets Phospho-Soda and some other medication but then she said she was getting worried and came into the emergency room. She states that she feels shaky and wants to "the pin removed". PAST HISTORY 1. According to the chart, and the patient does not admit any medical problems, but apparently she has epilepsy. 2. Bipolar disorders disorder. 3. She admits to asthma. 4. She has some documented rheumatoid arthritis. 5. Fibromyalgia. 6. Previous ulcer. 7. Reflux. 8. Anxiety. PAST SURGICAL HISTORY 1. She has had a hysterectomy. 2. Appendectomy. 3. Cholecystectomy. 4. Some surgery for a cystocele with mesh placed. ALLERGIES TO MEDICATIONS Numerous in what the patient states she was found allergic to. It is all documented, numerous medications which will not be repeated. MEDICATIONS She has been getting in the hospital here - 1. Morphine-. 2. Solu-Medrol. PHYSICAL EXAMINATION GENERAL: On examination she is an overweight female. She was sleeping when I got in the room and easily awakened. NECK: Supple. CHEST: Clear. HEART: Regular rate. ABDOMEN: Obese, soft. Laparoscopic scars. She states she has some pain in her right lower quadrant but when I distract her this is not reproduced. She definitely does not have rebound or guarding. There is no crepitance. EXTREMITIES: Moves all extremities well. No clubbing, cyanosis or edema. NEUROLOGIC: He is alert, somewhat inconsistent saying that she is in severe pain and wants more pain medicine. LABORATORY DATA White count was 6, H&H of 12 and 35. Chemistry essentially normal. IMAGING STUDIES CT scan done last night shows a foreign body in the cecum. No free air, no inflammation. In a sigmoid colon they thought there was some narrowing, possibly spasm. In reviewing the other name that she was under where she had a pin removed earlier in this month in March, and earlier admission when she underwent her appendectomy by Eduin, when she had her appendectomy, she had a nail in her appendix. ASSESSMENT A 46-year-old female with bipolar disorder with apparent history of swallowing sharp objects. She appears to have passed this pin to her cecum. At this time she has no clinical indications for any surgery. We will monitor her repeat x-rays. During our interview, she wanted numerous pain medications which I will leave to the primary care team. At this time I would keep n.p.o. and monitor with serial exam and intermittent x-ray. AKA: Nathan Machuca Konrad Lomeli MD JDB/GUICHO /7:54 AM /8:50 AM
[2017-03-19] MEDS ORDERED: PANTOPRAZOLE SODIUM 40 MG VIAL IV PUSH SCH (10:00)
[2017-03-19 10:53] LABS: PROTHROMBIN TIME - PATIENT 11.3 SEC (9.8-11.6)
--- NOTE | 2017-03-19 11:34 | HHI.PR ---
Subjective Remarks Follow-up for ingested foreign body and right lower quadrant pain. I was asked see the patient because she was asking to see me before she left AGAINST MEDICAL ADVICE. She is upset that she's been placed on IV morphine. She states that she has multiple medication allergies due to urticaria. She states that she doesn't want to take morphine is asking for oral pain medication because morphine makes her blood pressure dropped. I explained to her that while she is nothing by mouth she will need to be on IV pain control and with her reported allergy/adverse reaction to Toradol the best option would be to decrease the morphine. She then states that IV Demerol has not caused her blood pressure to drop in the past. She complains of severe pain to her right lower quadrant. She reports no bowel movement in the past 3 days. She is agreeable to an equivalent Dilaudid dose compared to the current dose of morphine, she states that doesn't drop her blood pressure as badly. She asserts that surgery was planning to do a procedure on her later today. She is upset that she's nothing by mouth. Discussed with RN, she has been refusing all medications except for pain medication and has repeatedly been asking for increased doses from the nurses. Objective Vitals Vital Signs Date Time Temp Pulse Resp B/P Pulse Ox O2 Delivery O2 Flow Rate FiO2 03/19/17 07:29 97.7 63 18 91/52 93 03/19/17 04:00 98.0 64 18 114/68 97 03/19/17 03:38 16 03/19/17 03:25 94 21 03/19/17 03:05 77 19 133/71 97 Room Air 03/19/17 02:05 97.6 74 18 112/74 97 Room Air 03/19/17 00:50 88 16 117/69 96 Room Air 03/18/17 23:25 17 03/18/17 23:20 86 16 112/83 97 Room Air 03/18/17 22:00 88 17 138/75 98 Room Air 03/18/17 21:41 17 03/18/17 20:35 100 18 137/74 97 Room Air 03/18/17 20:21 99.2 112 20 140/90 96 I/O 03/18/17 03/18/17 03/18/17 03/19/17 03/19/17 03/19/17 07:00 15:00 23:00 07:00 15:00 23:00 Intake Total 300 ml Output Total 200 ml Balance -200 ml 300 ml Intake Oral 300 ml Output Urine Total 200 ml # Voids 1 Result Diagram: 03/18/17213103/[id number]/172131 Imaging Last Impressions Abdomen/Pelvis CT 03/18/17 0000 Signed Impressions: Service Date/Time: Sunday, March 19, 2017 00:17 - CONCLUSION: 1. Swallowed tack is in the patient's cecum and there is probable spasm in the patient's sigmoid colon could be further characterized with sigmoidoscopy based on clinical grounds. 2. Indeterminant, however most likely benign nodule within the lingula and noncontrast chest CT is suggested in 6 months. Trisha Yi MD Abdomen X-Ray 03/18/17 0000 Signed Impressions: Service Date/Time: Saturday, March 18, 2017 21:13 - CONCLUSION: The foreign body is in the cecum. No free air or obstruction. Amilcar Krause MD Objective Remarks GENERAL: Well-developed well-nourished. In no acute distress. SKIN: Warm and dry. No lesions noted. HEENT: Normocephalic. Pupils equal and round. Mucous membranes pink and moist. CARDIOVASCULAR: Regular rate and rhythm. No murmur appreciated. RESPIRATORY: No accessory muscle use. Clear to auscultation. Breath sounds equal bilaterally. GASTROINTESTINAL: Abdomen soft, nondistended. No tenderness to deep palpation of the upper abdomen and left side, exquisite tenderness when brushing the skin on the right lower quadrant. Decreased bowel sounds. MUSCULOSKELETAL: No obvious deformities. No clubbing or cyanosis. No edema. NEUROLOGICAL: Awake and alert. No focal neurological deficits. Moves upper and lower extremities spontaneously. Normal speech. PSYCHIATRIC: Agitated mood and affect; insight and judgment normal. A/P Problem List: (1) Abdominal pain ICD Code: R10.9 Status: Acute (2) Foreign body in intestine ICD Code: T18.3XXA Status: Acute Assessment and Plan Ms. Florence is a 46 year-old female with a history of epilepsy, bipolar disorder , and rheumatoid arthritis who accidentally swallowed thumbtack on 03/17/2017 and presented to the emergency room on 03/18/2017 complaining of increasing abdominal pain. CT of pelvis showed radiopaque density in the patients cecum measuring 1.7 cm in length- likely the thumbtack and narrowing of the sigmoid colon which is probably due to spasm. Abdominal pain with foreign body in intestine Personally reviewed overnight images with foreign body in the cecum - Consulted general surgery, recommended conservative management with serial abdominal exams and x-rays - IVF while nothing by mouth - Dilaudid 0.2 mg IV push every 6 hours as needed for pain - Ordered KUB for tomorrow a.m. Small subcentimeter groundglass nodule in the lingual - Will need outpatient follow-up CT of chest in 6 months for further evaluation Drug-seeking behavior: The patient strongly demonstrates drug-seeking behaviors with multiple admissions for ingesting foreign bodies and repeatedly requesting stronger pain medication. Discuss with Dr. Barber and Dr. Ortiz, will not increase narcotics. - Continue cautious pain control as above Resume home medications as indicated when surgery clears for by mouth intake DVT prophylaxis: SCDs GI prophylaxis: Protonix Discharge Planning Monitor clinically, follow-up KUB results tomorrow, follow-up surgery recommendations. However, patient may decide to leave AGAINST MEDICAL ADVICE if narcotic demands are not met. Attending Statement Patient discussed early in am with PA and with [employer] from [facility] no further procedure at this time, if improve by tomorrow discharge home. Patient decided during the afternoon that she wanted to leave AMA Alert and oriented x 4 before leaving the Hospital and left AMA Patient Left AMA Problem Qualifiers (1) Abdominal pain: Qualified Code: R10.31 - Right lower quadrant abdominal pain (2) Foreign body in intestine: Qualified Code: T18.3XXA - Foreign body in intestine, initial encounter Manuel Montana Mar 19, 2017 11:34 Spencer Barrera MD Mar 19, 2017 17:14
[2017-03-19] MEDS ORDERED: HYDROmorphone HCL PF 1 MG/ML VIAL IV PUSH PRN (12:00)
[2017-03-19] MEDS ORDERED: ALBUTEROL SULFATE 90 MCG/ACT HFA 8 GM INHALER INH SCH (13:00)
[2017-03-20] MEDS ORDERED: PNEUMOCOCCAL POLYVALENT INJ 25 MCG/0.5 ML SYR IM ONE (09:00)
== END 2017-03-19 18:17 | disposition home or self-care (01) ==
LOC: PHED 20:16 → MERGE 03-19 01:49 → PHEDA 03-19 01:49 → NEPGCP 03-19 04:38
PROVIDERS: ADMIT Internal Medicine; ATTEND Internal Medicine
DX: T18.4XXA Foreign body in colon, initial encounter (principal); X58.XXXA Exposure to other specified factors, initial encounter; M06.9 Rheumatoid arthritis, unspecified; F31.9 Bipolar disorder, unspecified; G40.909 Epilepsy, unspecified, not intractable, without status epilepticus
CPT/HCPCS: 74020; 74177; 80048; 81001; 85025; 85610; 96361; 96374; 96375; 96376; 99285; G0378; J1170; J1200; J2270; J2405; J2930; J7030; Q9967; 99281

== ENCOUNTER 2017-10-03 15:49 | Emergency (ER) | payer OTHER ==
[~2017-10-03 15:49] MED LIST changes: +ASPI-516 CHEW; -ASPI81CH CHEW; +ESTR1TAB PO; +FAMO20TA2 PO; +GEMF600T PO; -HYOS0.128 PO; +HYOS1TAB9 PO; +KLON2TAB PO; +LURA1TAB2 PO; +MILKSUS PO; +TIZA4CAP3 PO
[2017-10-03 15:51] VITALS: BP 162/100; PULSE 119; RESP 18; TEMP 98.5; O2SAT 97
--- NOTE | 2017-10-03 16:07 | PD ---
HPI Chief Complaint: GI Complaint Time Seen by Provider: 15:58 Travel History International Travel<30 days: No Contact w/Intl Traveler<30days: No Traveled to known affect area: No History of Present Illness HPI 47-year-old female here for evaluation of left upper quadrant abdominal pain and bright red blood per rectum. Patient reports that the abdominal pain started about 3 days ago and has been constant, progressively worsening, now moderate severe, described as sharp/stabbing/pressure, worse with eating, radiates to her left back. She reports a history of peptic ulcer disease and used to be on pantoprazole, now on famotidine. She reports that she had a colonoscopy about a year ago and was told that she had some polyps. History of hysterectomy, cholecystectomy, appendectomy. She denies rectal pain. No fevers or chills. No vomiting. She is not on any antiplatelets or anticoagulants. Chart review shows that the patient has a history of swallowing metallic foreign bodies. She denies swallowing any recently. PFSH Past Medical History Hx Anticoagulant Therapy: Yes (BABY ASPIRIN) Arthritis: Yes Asthma: No Autoimmune Disease: Yes (RA) Blood Disorders: No Bipolar Disorder: Yes (manic depressive) Anxiety: Yes Depression: No Heart Rhythm Problems: No Cancer: No Cardiac Catheterization: Yes Cardiovascular Problems: No High Cholesterol: No Chemotherapy: No Chest Pain: No Congestive Heart Failure: No COPD: No Diabetes: No Diminished Hearing: No Diverticulitis: Yes Endocrine: No Fibromyalgia: Yes Gastrointestinal Disorders: Yes (GI BLEED) Genitourinary: No Hypertension: Yes Immune Disorder: No Kidney Stones: Yes Musculoskeletal: Yes (right foot with a plate and screw. right knee surgery) Neurologic: Yes (seizure history) Psychiatric: Yes (psych hx various bipolar disorder) Reproductive: Yes (hysterectomy) Respiratory: No Immunizations Current: Yes Migraines: Yes Radiation Therapy: No Seizures: Yes (Had one last Saturday; [facility]) Sleep Apnea: No Thyroid Disease: No Ulcer: Yes (peptic) ?: Not : 4 Para: 4 Dilation and Curettage (D&C): Yes Past Surgical History Abdominal Surgery: Yes (bladder mesh; partial removal of mesh) Appendectomy: Yes Body Medical Devices: RIGHT BLADDER MESH STILL IN Cholecystectomy: Yes Gynecologic Surgery: Yes (3 laparoscopys and D&Cs) Hysterectomy: Yes Other Surgery: Yes (BILAT FOOT AND ANKLE SURGERIES, RIGHT JAW, cervical rib ) Social History Alcohol Use: No Tobacco Use: Yes Substance Use: Yes Allergies-Medications (Allergen,Severity, Reaction): Coded Allergies: Sulfa (Sulfonamide Antibiotics) (Unverified Allergy, Severe, Anaphylaxis, 10/03/17) ciprofloxacin (Unverified Allergy, Severe, Hives, 10/03/17) diatrizoate meglumine (Unverified Allergy, Severe, Hives, 10/03/17) diazepam (Unverified Allergy, Severe, Hives, 10/03/17) gadobenic acid (Unverified Allergy, Severe, Hives, 10/03/17) gadodiamide (Unverified Allergy, Severe, Hives, 10/03/17) gadoteridol (Unverified Allergy, Severe, Hives, 10/03/17) iodixanol (Unverified Allergy, Severe, Hives, 10/03/17) iohexol (Unverified Allergy, Severe, Hives, 10/03/17) metoclopramide (Unverified Allergy, Severe, Seizures, 10/03/17) penicillin G (Unverified Allergy, Severe, Anaphylaxis, 10/03/17) shellfish derived (Unverified Allergy, Severe, Anaphylaxis, 10/03/17) tramadol (Unverified Allergy, Severe, Hives, 10/03/17) ziprasidone (Unverified Allergy, Severe, swelling of face , 10/03/17) ketorolac (Unverified Allergy, Intermediate, HIVES, 10/03/17) topiramate (Unverified Allergy, Mild, 10/03/17) diclofenac (Unverified Allergy, Unknown, Hives, 10/03/17) doxycycline (Unverified Allergy, Unknown, Itching, 10/03/17) etodolac (Unverified Allergy, Unknown, Hives, 10/03/17) flurbiprofen (Unverified Allergy, Unknown, Hives, 10/03/17) ibuprofen (Unverified Allergy, Unknown, Hives, 10/03/17) indomethacin (Unverified Allergy, Unknown, Hives, 10/03/17) ketoprofen (Unverified Allergy, Unknown, Hives, 10/03/17) metronidazole (Unverified Allergy, Unknown, Itching, 10/03/17) naproxen (Unverified Allergy, Unknown, Hives, 10/03/17) nitrofurantoin (Unverified Allergy, Unknown, Itching, 10/03/17) oxaprozin (Unverified Allergy, Unknown, Hives, 10/03/17) morphine (Unverified Adverse Reaction, Intermediate, 10/03/17) patient states that Morphine makes her nauseated and her blood pressures drops. Uncoded Allergies: PROVACHOL (Allergy, Intermediate, RASH, 02/09/16) Reported Meds & Prescriptions Reported Meds & Active Scripts Active Reported Temazepam 30 Mg Cap 30 Mg PO HS PRN Effexor (Venlafaxine HCl) 75 Mg Tab 75 Mg PO DAILY Ativan (Lorazepam) 0.5 Mg Tab 0.5 Mg PO Q8H PRN Tizanidine (Tizanidine HCl) 4 Mg Cap 4 Mg PO HS Famotidine 20 Mg Tab 20 Mg PO BID Proair Hfa 8.5 GM Inh (Albuterol Sulfate) 90 Mcg/Act Aer 2 Puff INH QID 108 mcg/actuation Estradiol 1 Mg Tab 1 Mg PO DAILY Aspirin 81 Mg Chew 81 Mg CHEW DAILY Lopid (Gemfibrozil) 600 Mg Tab 600 Mg PO BIDAC Take 30 minutes prior to breakfast and dinner Tegretol (Carbamazepine) 200 Mg Tab 200 Mg PO BID Hyoscyamine (Hyoscyamine Sulfate) 0.125 Mg Tab 0.125 Mg PO DAILY Phenobarbital 32.4 Mg Tab 32.4 Mg PO BID Review of Systems Except as stated in HPI: all other systems reviewed are Neg Physical Exam Narrative GENERAL: Well-developed, well-nourished, comfortable, no apparent distress. SKIN: Focused skin assessment warm/dry. No rash. No pallor. HEAD: Atraumatic. Normocephalic. EYES: Pupils equal and round. No scleral icterus. No injection or drainage. ENT: Mucous membranes pink and moist. NECK: Trachea midline. No JVD. CARDIOVASCULAR: Regular rate and rhythm. No murmur appreciated. RESPIRATORY: No accessory muscle use. Clear to auscultation. Breath sounds equal bilaterally. GASTROINTESTINAL: Abdomen soft, non-tender, nondistended. RECTUM: Exam performed in the presence of a female nurse. No masses, no fissures, no hemorrhoids. Heme positive brown stool. MUSCULOSKELETAL: No obvious deformities. No clubbing. No cyanosis. No edema. NEUROLOGICAL: Awake and alert. No obvious cranial nerve deficits. Motor grossly within normal limits. Normal speech. PSYCHIATRIC: Appropriate mood and affect; insight and judgment normal. Data Data Last Documented VS Vital Signs Date Time Temp Pulse Resp B/P (MAP) Pulse Ox O2 Delivery O2 Flow Rate FiO2 10/03/17 17:39 75 152/72 (98) 98 10/03/17 15:51 98.5 18 Orders Orders Complete Blood Count With Diff (10/03/17 16:03) Comprehensive Metabolic Panel (10/03/17 16:03) Lipase (10/03/17 16:03) Prothrombin Time / Inr (Pt) (10/03/17 16:03) Act Partial Throm Time (Ptt) (10/03/17 16:03) Urinalysis - C+S If Indicated (10/03/17 16:03) Iv Access Insert/Monitor (10/03/17 16:03) Ecg Monitoring (10/03/17 16:03) Oximetry (10/03/17 16:03) Ondansetron Inj (Zofran Inj) (10/03/17 16:15) Sodium Chloride 0.9% Flush (Ns Flush) (10/03/17 16:15) Electrocardiogram (10/03/17 16:03) Al-Mag Hy-Si 40-40-4 Mg/Ml Liq (Mag-Al P (10/03/17 16:15) Lidocaine 2% Viscous (Xylocaine 2% Visco (10/03/17 16:15) Sucralfate Liq (Carafate Liq) (10/03/17 16:15) Morphine Inj (Morphine Inj) (10/03/17 16:15) Ckmb (Isoenzyme) Profile (10/03/17 16:03) Troponin I (10/03/17 16:03) Ct Abd/Pel W/O Iv Contrast (10/03/17 16:33) Chest, Single Ap (10/03/17 16:34) Morphine Inj (Morphine Inj) (10/03/17 17:00) Labs Laboratory Tests Test 10/03/17 16:54 10/03/17 17:56 White Blood Count 6.2 TH/MM3 Red Blood Count 4.43 MIL/MM3 Hemoglobin 13.1 GM/DL Hematocrit 38.0 % Mean Corpuscular Volume 85.7 FL Mean Corpuscular Hemoglobin 29.4 PG Mean Corpuscular Hemoglobin Concent 34.3 % Red Cell Distribution Width 11.6 % Platelet Count 199 TH/MM3 Mean Platelet Volume 9.5 FL Neutrophils (%) (Auto) 63.1 % Lymphocytes (%) (Auto) 26.9 % Monocytes (%) (Auto) 4.8 % Eosinophils (%) (Auto) 4.9 % Basophils (%) (Auto) 0.3 % Neutrophils # (Auto) 3.9 TH/MM3 Lymphocytes # (Auto) 1.7 TH/MM3 Monocytes # (Auto) 0.3 TH/MM3 Eosinophils # (Auto) 0.3 TH/MM3 Basophils # (Auto) 0.0 TH/MM3 CBC Comment DIFF FINAL Differential Comment Prothrombin Time 10.3 SEC Prothromb Time International Ratio 1.0 RATIO Activated Partial Thromboplast Time 24.0 SEC Blood Urea Nitrogen 10 MG/DL Creatinine 0.64 MG/DL Random Glucose 99 MG/DL Total Protein 7.3 GM/DL Albumin 3.5 GM/DL Calcium Level 8.6 MG/DL Alkaline Phosphatase 103 U/L Aspartate Amino Transf (AST/SGOT) 14 U/L Alanine Aminotransferase (ALT/SGPT) 14 U/L Total Bilirubin 0.1 MG/DL Sodium Level 139 MEQ/L Potassium Level 3.5 MEQ/L Chloride Level 109 MEQ/L Carbon Dioxide Level 22.1 MEQ/L Anion Gap 8 MEQ/L Estimat Glomerular Filtration Rate 99 ML/MIN Total Creatine Kinase 45 U/L Troponin I LESS THAN 0.02 NG/ML Lipase 125 U/L Urine Color YELLOW Urine Turbidity CLEAR Urine pH 6.5 Urine Specific Hughes 1.007 Urine Protein NEG mg/dL Urine Glucose (UA) NEG mg/dL Urine Ketones NEG mg/dL Urine Occult Blood TRACE Urine Nitrite NEG Urine Bilirubin NEG Urine Leukocyte Esterase NEG Urine RBC 0-3 /hpf Urine WBC 0-2 /hpf Urine Squamous Epithelial Cells > 8 /hpf Urine Bacteria FEW /hpf Microscopic Urinalysis Comment CULT NOT INDICATED MDM Medical Decision Making Medical Screen Exam Complete: Yes Emergency Medical Condition: Yes Medical Record Reviewed: Yes Interpretation(s) EKG: Sinus, rate 95, normal axis, normal intervals, no acute ischemic abnormality. Differential Diagnosis Peptic ulcer disease, gastritis, pancreatitis, upper GI bleed, lower GI bleed, ACS Narrative Course Vital signs show heart rate 75, blood pressure 152/72, pulse ox 98% on room air , oral temp of 98.5F. CBC: WBC 6.2, hemoglobin 13.1, hematocrit 38, platelets 199. CMP is unremarkable. Lipase is 125. Cardiac enzymes are negative. UA: CT abdomen pelvis: 2 mm calculus in the inferior pole of the right kidney. No obstructive uropathy. No acute abnormality in the abdomen or pelvis. Patient was made aware of all findings and was provided a copy of her CT report and labs. She is resting comfortably. She had significant improvement in symptoms with GI cocktail. I do not believe her pain is cardiac in nature. She likely has gastritis or peptic ulcer disease. She does have heme positive and brown stool. She is hemodynamic be stable with a normal H&H. She could have internal hemorrhoids. She reports that she had a colonoscopy about a year ago which showed polyps. At this point I believe she is stable for discharge home with further workup as an outpatient with her primary care physician or guard range this week. She is currently on Pepcid. She refused Carafate in the emergency department. She was advised on when to return to the emergency department. She verbalizes understanding and agreement with plan. Diagnosis Primary Impression: Abdominal pain, LUQ (left upper quadrant) Additional Impression: Heme positive stool Referrals: [facility] 3 days Primary Care Physician 3 days Additional Instructions: Follow-up with your primary care physician this week. Follow-up with your guard range this week. Avoid foods that might irritate stomach ulcers as discussed. Return to the emergency department for worsening symptoms or any other concerns. Scripts Hydrocodone-Acetaminophen (Hydrocodone-Acetaminophen) 5-325 mg Tab 1 TAB PO Q6H Y for PAIN, #12 TAB 0 Refills Prov: Antoine Nielsen MD 10/03/17 Pantoprazole (Protonix) 40 Mg Tab 40 MG PO DAILY for Reflux, #30 TAB 0 Refills Prov: Antoine Nielsen MD 10/03/17 Disposition: 01 DISCHARGE HOME Condition: Stable Antoine Nielsen MD Oct 03, 2017 16:07
[2017-10-03] MEDS ORDERED: LORA-392 PO (16:09)
[2017-10-03] MEDS ORDERED: VENL75TA PO (16:09)
[2017-10-03] MEDS ORDERED: TEMA30CA PO (16:09)
[2017-10-03] MEDS: SUCRALFATE 1 GM/10 ML CUP PO ONE ×2 (16:15→17:22)
[2017-10-03] MEDS ORDERED: SODIUM CHLORIDE 0.9% FLUSH 10 ML FLUSH IV FLUSH PRN (16:15)
[2017-10-03] MEDS ORDERED: ALUMINUM/MAGNESIUM/SIMETH 30 ML CUP PO ONE (16:15)
[2017-10-03] MEDS ORDERED: LIDOCAINE VISCOUS 2% SOLN 15 ML UDC PO ONE (16:15)
[2017-10-03] MEDS ORDERED: ONDANSETRON HCL 4 MG/2 ML VIAL IVP ONE (16:15)
[2017-10-03] MEDS ORDERED: MORPHINE SULFATE 2 MG/ML INJ IM ONE (16:15)
[2017-10-03 17:00] VITALS: O2SAT 98
[2017-10-03] MEDS ORDERED: MORPHINE SULFATE 2 MG/ML INJ IV PUSH ONE (17:00)
[2017-10-03 17:20] LABS: CHLORIDE 109 MEQ/L (98-107); SODIUM (NA) 139 MEQ/L (136-145)
[2017-10-03 17:23] LABS: CALCIUM 8.6 MG/DL (8.5-10.1)
[2017-10-03 17:24] LABS: ALBUMIN 3.5 GM/DL (3.4-5.0); BICARBONATE 22.1 MEQ/L (21.0-32.0); BLOOD UREA NITROGEN 10 MG/DL (7-18); GLUCOSE,RANDOM 99 MG/DL (74-106); LIPASE 125 U/L (73-393)
--- NOTE | 2017-10-03 17:24 | RADRPT ---
EXAM DATE/TIME: 10/03/2017 17:15 [facility] COMPARISON: CHEST SINGLE AP, May 29, 2016, 15:56. INDICATIONS : Left lower quadrant pain radiating up into left chest. MEDICAL HISTORY : Diverticulitis. Hypertension. peptic ulcer SURGICAL HISTORY : Appendectomy. Cholecystectomy.Hysterectomy.Bladder mesh surgery. Cardiac cath. ENCOUNTER: Initial ACUITY: 1 day PAIN SCORE: 6/10 LOCATION: Left chest FINDINGS: A single view of the chest demonstrates the lungs to be symmetrically aerated without evidence of mas s, infiltrate or effusion. The cardiomediastinal contours are unremarkable. Osseous structures are intact. CONCLUSION: 1. No acute cardiopulmonary disease. Sunday Dawson MD on October 03, 2017 at 17:22 Board Certified Radiologist. This report was verified electronically.
[2017-10-03 17:25] LABS: PROTHROMBIN TIME - PATIENT 10.3 SEC (9.8-11.6)
[2017-10-03 17:27] LABS: ALT (GPT) 14 U/L (10-53); AST (GOT) 14 U/L (15-37); CREATININE 0.64 MG/DL (0.50-1.00); GLOMERULAR FILTRATION RATE 99 ML/MIN (>89)
[2017-10-03 17:28] LABS: TOTAL BILIRUBIN ADULT 0.1 MG/DL (0.2-1.0); TOTAL PROTEIN 7.3 GM/DL (6.4-8.2)
[2017-10-03 17:29] LABS: ALKALINE PHOSPHATASE 103 U/L (45-117)
[2017-10-03 17:32] LABS: TROPONIN I LESS THAN 0.02 NG/ML (0.02-0.05)
[2017-10-03 17:39] VITALS: BP 152/72; PULSE 75; O2SAT 98
[2017-10-03 17:50] LABS: AUTOMATED NEUTROPHIL # 3.9 TH/MM3 (1.8-7.7); BASOPHIL % 0.3 % (0.0-2.0); EOSINOPHIL # 0.3 TH/MM3 (0-0.4); EOSINOPHIL % 4.9 % (0.0-4.0); HEMOGLOBIN 13.1 GM/DL (11.6-15.3); LYMPH % 26.9 % (9.0-44.0); LYMPHOCYTE # 1.7 TH/MM3 (1.0-4.8); MEAN CELL VOLUME 85.7 FL (80.0-100.0); MEAN CORPUSCULAR HEMOGLOBIN 29.4 PG (27.0-34.0); MEAN CORPUSCULAR HGB CONC 34.3 % (32.0-36.0); MEAN PLATELET VOLUME 9.5 FL (7.0-11.0); MONO % 4.8 % (0.0-8.0); MONOCYTE # 0.3 TH/MM3 (0-0.9); NEUT % 63.1 % (16.0-70.0); PLATELET COUNT 199 TH/MM3 (150-450); RED BLOOD COUNT 4.43 MIL/MM3 (4.00-5.30); RED CELL DISTRIBUTION WIDTH 11.6 % (11.6-17.2); WHITE BLOOD COUNT 6.2 TH/MM3 (4.0-11.0)
--- NOTE | 2017-10-03 17:54 | RADRPT ---
EXAM DATE/TIME: 10/03/2017 17:25 [facility] COMPARISON: CT ABDOMEN & PELVIS W/O CONTRAST, June 20, 2016, 21:09. INDICATIONS : Left upper quadrant pain, blood in stool. ORAL CONTRAST: No oral contrast ingested. RADIATION DOSE: 22.25 CTDIvol (mGy) ; Patient body habitus MEDICAL HISTORY : Ulcers. Gastroesophageal reflux disease. Diverticulitis.Colitis, renal calculi. SURGICAL HISTORY : Appendectomy. Cholecystectomy.Appendectomy.Bladder suspension with mesh. ENCOUNTER: Initial ACUITY: 3 days PAIN SCALE: 6/10 LOCATION: Left upper quadrant TECHNIQUE: Volumetric scanning of the abdomen and pelvis was performed. Using automated exposure control and ad justment of the mA and/or kV according to patient size, radiation dose was kept as low as reasonably achievable to obtain optimal diagnostic quality images. DICOM format image data is available electro nically for review and comparison. FINDINGS: LOWER LUNGS: The visualized lower lungs are clear. LIVER: Homogeneous density without lesion. There is no dilation of the biliary tree. Gallbladder is surgica lly absent. SPLEEN: Normal size without lesion. PANCREAS: Within normal limits. KIDNEYS: Very subtle 2 mm calcified calculus in the inferior pole of the right kidney. Kidneys are otherwise s table without evidence for hydronephrosis or contour deforming abnormality. ADRENAL GLANDS: Within normal limits. VASCULAR: There is no aortic aneurysm. BOWEL/MESENTERY: The stomach, small bowel, and colon demonstrate no acute abnormality. There is no free intraperitone al air or fluid. ABDOMINAL WALL: Within normal limits. RETROPERITONEUM: There is no lymphadenopathy. BLADDER: No wall thickening or mass. REPRODUCTIVE: Uterus is not visualized and may be surgically absent. INGUINAL: There is no lymphadenopathy or hernia. MUSCULOSKELETAL: Within normal limits for patient age. CONCLUSION: 1. Subtle 2 mm calyceal calculus in the inferior pole of the right kidney. No obstructive uropathy. 2. No acute abnormality in the abdomen or pelvis. Sunday Dawson MD on October 03, 2017 at 17:48 Board Certified Radiologist. This report was verified electronically.
[2017-10-03 18:02] LABS: BILIRUBIN, URINE NEG (NEG); GLUCOSE,URINE NEG (NEG); KETONE, URINE NEG (NEG); NITRITE,URINE NEG (NEG); PH, URINE 6.5 (5.0-8.5); URINE LEUKOCYTE ESTERASE NEG (NEG)
[2017-10-03 18:07] LABS: BLOOD, URINE TRACE (NEG)
[2017-10-03 18:08] LABS: BACTERIA, URINE FEW /hpf; RBC, URINE 0-3 /hpf (0-3); SQUAMOUS EPITHELIAL CELL URINE > 8 /hpf (0-5); URINE COLOR YELLOW (YELLW/STRAW); WBC, URINE 0-2 /hpf (0-5)
[2017-10-03] MEDS ORDERED: HYDR-3516 PO (18:16)
[2017-10-03] MEDS ORDERED: PROT40TA PO (18:16)
--- NOTE | 2017-10-04 13:55 | EKG ---
Date Performed: 10/03/2017 Time Performed: 16:12:36 PTAGE: 47 years EKG: Sinus rhythm NORMAL ECG PREVIOUS TRACING : 05/29/2016 15.58 Since prior tracing, sinus rate is slower. DOCTOR: Jaylon Disla Interpretating Date/Time 10/04/2017 13:54:50
== END 2017-10-03 18:27 | disposition home or self-care (01) ==
LOC: PHED 15:49
DX: R10.12 Left upper quadrant pain (principal); K92.1 Melena; M06.9 Rheumatoid arthritis, unspecified; I10 Essential (primary) hypertension; Z72.0 Tobacco use; Z79.01 Long term (current) use of anticoagulants
CPT/HCPCS: 71010; 74176; 80053; 81001; 82550; 83690; 84484; 85025; 85610; 85730; 93005; 96374; 96375; 99285; J2270; J2405

== ENCOUNTER 2017-10-25 14:42 | Emergency (ER) | payer OTHER ==
[~2017-10-25] VITALS: Ht 152.4 cm; Wt 86.0 kg
[~2017-10-25 14:42] MED LIST changes: -CLON.5 PO; -CYMB60CA PO; -FAMO1TAB30 PO; -GEMF600T PO; +HYDR-3516 PO; -KLON2TAB PO; +LORA-392 PO; -LURA1TAB2 PO; -MILKSUS PO; -NEUR300C PO; +PROT40TA PO; +TEMA30CA PO; +VENL75TA PO
[2017-10-25 14:55] VITALS: BP 142/97; PULSE 95; RESP 16; TEMP 98; O2SAT 98
[2017-10-25] MEDS ORDERED: PANTOPRAZOLE INJ 80 MG in SODIUM CHLORIDE 0.9% INJ 35 ML IV ONE (16:25)
[2017-10-25] MEDS ORDERED: SODIUM CHLORIDE 0.9% FLUSH 10 ML FLUSH IVF PRN (16:30)
[2017-10-25 16:37] VITALS: O2SAT 98
[2017-10-25 16:49] VITALS: BP 118/67; PULSE 84; RESP 18; O2SAT 100
[2017-10-25 16:54] LABS: AUTOMATED NEUTROPHIL # 3.4 TH/MM3 (1.8-7.7); BASOPHIL % 0.5 % (0.0-2.0); EOSINOPHIL # 0.8 TH/MM3 (0-0.4); EOSINOPHIL % 12.3 % (0.0-4.0); HEMATOCRIT 39.1 % (35.0-46.0); HEMOGLOBIN 13.1 GM/DL (11.6-15.3); LYMPH % 27.4 % (9.0-44.0); LYMPHOCYTE # 1.7 TH/MM3 (1.0-4.8); MEAN CORPUSCULAR HEMOGLOBIN 29.2 PG (27.0-34.0); MEAN CORPUSCULAR HGB CONC 33.6 % (32.0-36.0); MEAN PLATELET VOLUME 8.5 FL (7.0-11.0); MONO % 4.3 % (0.0-8.0); MONOCYTE # 0.3 TH/MM3 (0-0.9); NEUT % 55.5 % (16.0-70.0); PLATELET COUNT 234 TH/MM3 (150-450); RED BLOOD COUNT 4.49 MIL/MM3 (4.00-5.30); RED CELL DISTRIBUTION WIDTH 12.1 % (11.6-17.2); WHITE BLOOD COUNT 6.2 TH/MM3 (4.0-11.0)
--- NOTE | 2017-10-25 16:55 | PD ---
HPI Chief Complaint: GI Complaint Time Seen by Provider: 16:22 Travel History International Travel<30 days: No Contact w/Intl Traveler<30days: No Traveled to known affect area: No History of Present Illness HPI 47 y/o female presents with rectal bleeding that is been present over the past couple of days with associated nausea. She states that she's had this before and came to the ER and her blood counts were stable and so they sent her home. She states that she's also had scopes before that she was told that were okay but her concern is she is bleeding again. She denies any other concurrent complaints other than intermittent abdominal cramping. Quality is burning colored. Severity is multiple episodes per patient. She denies specific modifying factors. Duration is couple of days. PFSH Past Medical History Hx Anticoagulant Therapy: Yes (BABY ASPIRIN) Arthritis: Yes Asthma: No Autoimmune Disease: Yes (RA) Blood Disorders: No Bipolar Disorder: Yes (manic depressive) Anxiety: Yes Depression: No Heart Rhythm Problems: No Cancer: No Cardiac Catheterization: Yes Cardiovascular Problems: No High Cholesterol: No Chemotherapy: No Chest Pain: No Congestive Heart Failure: No COPD: No Diabetes: No Diminished Hearing: No Diverticulitis: Yes Endocrine: No Fibromyalgia: Yes Gastrointestinal Disorders: Yes (swallowed metal objects) Genitourinary: No Hypertension: Yes Immune Disorder: No Kidney Stones: Yes Musculoskeletal: Yes (right foot with a plate and screw. 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) Sleep Apnea: No Thyroid Disease: No Ulcer: Yes (peptic) ?: Not : 4 Para: 4 Dilation and Curettage (D&C): Yes Past Surgical History Abdominal Surgery: Yes (bladder mesh; partial removal of mesh) Appendectomy: Yes Body Medical Devices: RIGHT BLADDER MESH STILL IN Cholecystectomy: Yes Gynecologic Surgery: Yes (3 laparoscopys and D&Cs) Hysterectomy: Yes Other Surgery: Yes (bladder mesh) Social History Alcohol Use: No Tobacco Use: No Substance Use: No Allergies-Medications (Allergen,Severity, Reaction): Coded Allergies: Sulfa (Sulfonamide Antibiotics) (Unverified Allergy, Severe, Anaphylaxis, 10/25/17) ciprofloxacin (Unverified Allergy, Severe, Hives, 10/25/17) diatrizoate meglumine (Unverified Allergy, Severe, Hives, 10/25/17) diazepam (Unverified Allergy, Severe, Hives, 10/25/17) gadobenic acid (Unverified Allergy, Severe, Hives, 10/25/17) gadodiamide (Unverified Allergy, Severe, Hives, 10/25/17) gadoteridol (Unverified Allergy, Severe, Hives, 10/25/17) iodixanol (Unverified Allergy, Severe, Hives, 10/25/17) iohexol (Unverified Allergy, Severe, Hives, 10/25/17) metoclopramide (Unverified Allergy, Severe, Seizures, 10/25/17) penicillin G (Unverified Allergy, Severe, Anaphylaxis, 10/25/17) shellfish derived (Unverified Allergy, Severe, Anaphylaxis, 10/25/17) tramadol (Unverified Allergy, Severe, Hives, 10/25/17) ziprasidone (Unverified Allergy, Severe, swelling of face , 10/25/17) ketorolac (Unverified Allergy, Intermediate, HIVES, 10/25/17) topiramate (Unverified Allergy, Mild, 10/25/17) diclofenac (Unverified Allergy, Unknown, Hives, 10/25/17) doxycycline (Unverified Allergy, Unknown, Itching, 10/25/17) etodolac (Unverified Allergy, Unknown, Hives, 10/25/17) flurbiprofen (Unverified Allergy, Unknown, Hives, 10/25/17) ibuprofen (Unverified Allergy, Unknown, Hives, 10/25/17) indomethacin (Unverified Allergy, Unknown, Hives, 10/25/17) ketoprofen (Unverified Allergy, Unknown, Hives, 10/25/17) metronidazole (Unverified Allergy, Unknown, Itching, 10/25/17) naproxen (Unverified Allergy, Unknown, Hives, 10/25/17) nitrofurantoin (Unverified Allergy, Unknown, Itching, 10/25/17) oxaprozin (Unverified Allergy, Unknown, Hives, 10/25/17) morphine (Unverified Adverse Reaction, Intermediate, 10/25/17) patient states that Morphine makes her nauseated and her blood pressures drops. Uncoded Allergies: PROVACHOL (Allergy, Intermediate, RASH, 02/09/16) Reported Meds & Prescriptions Reported Meds & Active Scripts Active Bentyl (Dicyclomine HCl) 10 Mg Cap 10 Mg PO TID PRN Hydrocodone-Acetaminophen 5-325 mg Tab 1 Tab PO Q6H PRN Protonix (Pantoprazole Sodium) 40 Mg Tab 40 Mg PO DAILY Reported Temazepam 30 Mg Cap 30 Mg PO HS PRN Effexor (Venlafaxine HCl) 75 Mg Tab 75 Mg PO DAILY Ativan (Lorazepam) 0.5 Mg Tab 0.5 Mg PO Q8H PRN Tizanidine (Tizanidine HCl) 4 Mg Cap 4 Mg PO HS Famotidine 20 Mg Tab 20 Mg PO BID Proair Hfa 8.5 GM Inh (Albuterol Sulfate) 90 Mcg/Act Aer 2 Puff INH QID 108 mcg/actuation Estradiol 1 Mg Tab 1 Mg PO DAILY Aspirin 81 Mg Chew 81 Mg CHEW DAILY Lopid (Gemfibrozil) 600 Mg Tab 600 Mg PO BIDAC Take 30 minutes prior to breakfast and dinner Tegretol (Carbamazepine) 200 Mg Tab 200 Mg PO BID Hyoscyamine (Hyoscyamine Sulfate) 0.125 Mg Tab 0.125 Mg PO DAILY Phenobarbital 32.4 Mg Tab 32.4 Mg PO BID Review of Systems Except as stated in HPI: all other systems reviewed are Neg Physical Exam Narrative GENERAL: Well-nourished, well-developed patient. Well-appearing SKIN: Warm and dry. HEAD: Normocephalic and atraumatic. EYES: No injection or drainage. ENT: No nasal drainage noted. NECK: Supple, trachea midline. CARDIOVASCULAR: Regular rate and rhythm RESPIRATORY: No increased effort. No accessory muscle use. GASTROINTESTINAL: Abdomen soft, non-tender, nondistended. RECTAL EXAM: Performed with supervisor dyer and after permission. No large external hemorrhoid or fissure, stool is brown, bloody. NEUROLOGICAL: Awake and alert. Motor and sensory grossly within normal limits. Normal speech. Data Data Last Documented VS Vital Signs Date Time Temp Pulse Resp B/P (MAP) Pulse Ox O2 Delivery O2 Flow Rate FiO2 10/25/17 17:36 10/25/17 16:49 84 18 100 Room Air 10/25/17 14:55 98.0 Orders Orders Complete Blood Count With Diff (10/25/17 16:25) Comprehensive Metabolic Panel (10/25/17 16:25) Prothrombin Time / Inr (Pt) (10/25/17 16:25) Act Partial Throm Time (Ptt) (10/25/17 16:25) Type And Screen (10/25/17 16:25) Ecg Monitoring (10/25/17 16:25) Iv Access Insert/Monitor (10/25/17 16:25) Oximetry (10/25/17 16:25) Sodium Chloride 0.9% Flush (Ns Flush) (10/25/17 16:30) Sodium Chloride 0.9... W/Pantoprazole In (10/25/17 16:25) Ondansetron Inj (Zofran Inj) (10/25/17 17:00) Ed Discharge Order (10/25/17 17:28) Labs Laboratory Tests Test 10/25/17 16:44 White Blood Count 6.2 TH/MM3 Red Blood Count 4.49 MIL/MM3 Hemoglobin 13.1 GM/DL Hematocrit 39.1 % Mean Corpuscular Volume 87.0 FL Mean Corpuscular Hemoglobin 29.2 PG Mean Corpuscular Hemoglobin Concent 33.6 % Red Cell Distribution Width 12.1 % Platelet Count 234 TH/MM3 Mean Platelet Volume 8.5 FL Neutrophils (%) (Auto) 55.5 % Lymphocytes (%) (Auto) 27.4 % Monocytes (%) (Auto) 4.3 % Eosinophils (%) (Auto) 12.3 % Basophils (%) (Auto) 0.5 % Neutrophils # (Auto) 3.4 TH/MM3 Lymphocytes # (Auto) 1.7 TH/MM3 Monocytes # (Auto) 0.3 TH/MM3 Eosinophils # (Auto) 0.8 TH/MM3 Basophils # (Auto) 0.0 TH/MM3 CBC Comment DIFF FINAL Differential Comment Prothrombin Time 10.7 SEC Prothromb Time International Ratio 1.1 RATIO Activated Partial Thromboplast Time 25.0 SEC Blood Urea Nitrogen 9 MG/DL Creatinine 0.69 MG/DL Random Glucose 101 MG/DL Total Protein 7.7 GM/DL Albumin 3.8 GM/DL Calcium Level 8.7 MG/DL Alkaline Phosphatase 111 U/L Aspartate Amino Transf (AST/SGOT) 15 U/L Alanine Aminotransferase (ALT/SGPT) 15 U/L Total Bilirubin 0.2 MG/DL Sodium Level 140 MEQ/L Potassium Level 3.4 MEQ/L Chloride Level 107 MEQ/L Carbon Dioxide Level 24.7 MEQ/L Anion Gap 8 MEQ/L Estimat Glomerular Filtration Rate 91 ML/MIN MDM Medical Decision Making Medical Screen Exam Complete: Yes Emergency Medical Condition: Yes Medical Record Reviewed: Yes (past history confirm, prior colonoscopy reviewed) Interpretation(s) CBC & BMP Diagram 10/25/17 16:44 Albumin 3.8, Calcium Level 8.7 Differential Diagnosis Gastritis, fissure, diverticulosis Narrative Course Will check blood work and dose with Protonix and reevaluate labs are stable will discuss with gi Patient denies any new complaints, all questions answered. Patient knows that follow up is incumbent on them and to return to the emergency room immediately if new or worsening symptoms develop. Patient given strict return precautions, vitals reviewed and are normal, agrees to further workup as an outpatient. Physician Communication Physician Communication dr corona states to send home on bentyl and have follow in office Diagnosis Primary Impression: Rectal bleed Additional Impression: Abdominal cramping Referrals: Rajinder Corona MD call for appointment Patient Instructions: General Instructions Additional Instructions: bentyl as needed, return as needed Med/Other Pt SpecificInfo: Prescription(s) given Scripts Dicyclomine (Bentyl) 10 Mg Cap 10 MG PO TID Y for CRAMPS, #10 CAP 0 Refills Prov: Ce Tubbs MD 10/25/17 Disposition: 01 DISCHARGE HOME Condition: Stable Ce Tubbs MD Oct 25, 2017 16:55
[2017-10-25] MEDS ORDERED: ONDANSETRON HCL 4 MG/2 ML VIAL IV PUSH ONE (17:00)
[2017-10-25 17:02] LABS: CHLORIDE 107 MEQ/L (98-107); SODIUM (NA) 140 MEQ/L (136-145)
[2017-10-25 17:06] LABS: ALBUMIN 3.8 GM/DL (3.4-5.0); BICARBONATE 24.7 MEQ/L (21.0-32.0); BLOOD UREA NITROGEN 9 MG/DL (7-18); CALCIUM 8.7 MG/DL (8.5-10.1); GLUCOSE,RANDOM 101 MG/DL (74-106)
[2017-10-25 17:07] LABS: INTERNATIONAL NORMALIZED RATIO 1.1 RATIO; PROTHROMBIN TIME - PATIENT 10.7 SEC (9.8-11.6)
[2017-10-25 17:09] LABS: ALT (GPT) 15 U/L (10-53); AST (GOT) 15 U/L (15-37); CREATININE 0.69 MG/DL (0.50-1.00); GLOMERULAR FILTRATION RATE 91 ML/MIN (>89)
[2017-10-25 17:11] LABS: TOTAL BILIRUBIN ADULT 0.2 MG/DL (0.2-1.0); TOTAL PROTEIN 7.7 GM/DL (6.4-8.2)
[2017-10-25 17:12] LABS: ALKALINE PHOSPHATASE 111 U/L (45-117)
[2017-10-25] MEDS ORDERED: DICY10 PO (17:27)
== END 2017-10-25 17:39 | disposition home or self-care (01) ==
LOC: PHED 14:42
DX: K62.5 Hemorrhage of anus and rectum (principal); R10.9 Unspecified abdominal pain; R11.0 Nausea; I10 Essential (primary) hypertension; Z79.01 Long term (current) use of anticoagulants
CPT/HCPCS: 80053; 85025; 85610; 85730; 86850; 86900; 86901; 96374; 96375; 99284; C9113; J2405

== ENCOUNTER 2017-11-15 12:39 | Emergency (ER) | payer OTHER ==
[~2017-11-15] VITALS: Ht 152.4 cm; Wt 85.6 kg
[~2017-11-15 12:39] MED LIST changes: +DICY10 PO
[2017-11-15 12:47] VITALS: BP 138/88; PULSE 92; RESP 18; TEMP 99.1; O2SAT 98
[2017-11-15] MEDS ORDERED: AMBI10TA PO (13:01)
--- NOTE | 2017-11-15 13:09 | PD ---
HPI Chief Complaint: rectal bleeding Time Seen by Provider: 12:44 Travel History International Travel<30 days: No Contact w/Intl Traveler<30days: No Traveled to known affect area: No History of Present Illness HPI This patient has long-standing history of GI bleeding problems. Complains of red rectal bleeding today. He was here weeks ago with the same complaint. She tried to follow up with the GI physician but due to her Medicaid they wouldn't see her. No presyncopal symptoms. Takes a daily baby aspirin. Symptoms severity is mild. No alleviating factors. Exacerbating factors. She had a colonoscopy within the last year and reported had a polyp. PFSH Past Medical History Hx Anticoagulant Therapy: Yes (BABY ASPIRIN) Arthritis: Yes Asthma: No Autoimmune Disease: Yes (RA) Blood Disorders: No Bipolar Disorder: Yes (manic depressive) Anxiety: Yes Depression: No Heart Rhythm Problems: No Cancer: No Cardiac Catheterization: Yes Cardiovascular Problems: No High Cholesterol: No Chemotherapy: No Chest Pain: No Congestive Heart Failure: No COPD: No Cerebrovascular Accident: No Diabetes: No Diminished Hearing: No Diverticulitis: Yes Endocrine: No Fibromyalgia: Yes Gastrointestinal Disorders: Yes (swallowed metal objects) Genitourinary: No Hypertension: No Immune Disorder: No Implanted Vascular Access Dvce: No Kidney Stones: Yes Musculoskeletal: Yes (right foot with a plate and screw. 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) Sleep Apnea: No Thyroid Disease: No Ulcer: Yes (peptic) ?: Not : 4 Para: 4 Dilation and Curettage (D&C): Yes Past Surgical History Abdominal Surgery: Yes (bladder mesh; partial removal of mesh) Appendectomy: Yes Body Medical Devices: RIGHT BLADDER MESH STILL IN Cholecystectomy: Yes Gynecologic Surgery: Yes (3 laparoscopys and D&Cs) Hysterectomy: Yes Other Surgery: Yes (bladder mesh) Social History Alcohol Use: No Tobacco Use: No Substance Use: No Allergies-Medications (Allergen,Severity, Reaction): Coded Allergies: Sulfa (Sulfonamide Antibiotics) (Unverified Allergy, Severe, Anaphylaxis, 11/15/17) ciprofloxacin (Unverified Allergy, Severe, Hives, 11/15/17) diatrizoate meglumine (Unverified Allergy, Severe, Hives, 11/15/17) diazepam (Unverified Allergy, Severe, Hives, 11/15/17) gadobenic acid (Unverified Allergy, Severe, Hives, 11/15/17) gadodiamide (Unverified Allergy, Severe, Hives, 11/15/17) gadoteridol (Unverified Allergy, Severe, Hives, 11/15/17) iodixanol (Unverified Allergy, Severe, Hives, 11/15/17) iohexol (Unverified Allergy, Severe, Hives, 11/15/17) metoclopramide (Unverified Allergy, Severe, Seizures, 11/15/17) penicillin G (Unverified Allergy, Severe, Anaphylaxis, 11/15/17) shellfish derived (Unverified Allergy, Severe, Anaphylaxis, 11/15/17) tramadol (Unverified Allergy, Severe, Hives, 11/15/17) ziprasidone (Unverified Allergy, Severe, swelling of face , 11/15/17) ketorolac (Unverified Allergy, Intermediate, HIVES, 11/15/17) topiramate (Unverified Allergy, Mild, 11/15/17) diclofenac (Unverified Allergy, Unknown, Hives, 11/15/17) doxycycline (Unverified Allergy, Unknown, Itching, 11/15/17) etodolac (Unverified Allergy, Unknown, Hives, 11/15/17) flurbiprofen (Unverified Allergy, Unknown, Hives, 11/15/17) ibuprofen (Unverified Allergy, Unknown, Hives, 11/15/17) indomethacin (Unverified Allergy, Unknown, Hives, 11/15/17) ketoprofen (Unverified Allergy, Unknown, Hives, 11/15/17) metronidazole (Unverified Allergy, Unknown, Itching, 11/15/17) naproxen (Unverified Allergy, Unknown, Hives, 11/15/17) nitrofurantoin (Unverified Allergy, Unknown, Itching, 11/15/17) oxaprozin (Unverified Allergy, Unknown, Hives, 11/15/17) morphine (Unverified Adverse Reaction, Intermediate, 11/15/17) patient states that Morphine makes her nauseated and her blood pressures drops. Uncoded Allergies: PROVACHOL (Allergy, Intermediate, RASH, 02/09/16) Reported Meds & Prescriptions Reported Meds & Active Scripts Active Reported Ambien (Zolpidem Tartrate) 10 Mg Tab 10 Mg PO HS PRN Ativan (Lorazepam) 0.5 Mg Tab 0.5 Mg PO Q8H PRN Tizanidine (Tizanidine HCl) 4 Mg Cap 4 Mg PO HS Famotidine 20 Mg Tab 20 Mg PO BID Proair Hfa 8.5 GM Inh (Albuterol Sulfate) 90 Mcg/Act Aer 2 Puff INH QID 108 mcg/actuation Estradiol 1 Mg Tab 1 Mg PO DAILY Aspirin 81 Mg Chew 81 Mg CHEW DAILY Lopid (Gemfibrozil) 600 Mg Tab 600 Mg PO BIDAC Take 30 minutes prior to breakfast and dinner Tegretol (Carbamazepine) 200 Mg Tab 200 Mg PO BID Hyoscyamine (Hyoscyamine Sulfate) 0.125 Mg Tab 0.125 Mg PO DAILY Phenobarbital 32.4 Mg Tab 32.4 Mg PO BID Review of Systems General / Constitutional: No: Fever Eyes: No: Visual changes HENT: No: Headaches Cardiovascular: No: Chest Pain or Discomfort Respiratory: No: Shortness of Breath Gastrointestinal: No: Abdominal Pain Genitourinary: No: Dysuria Musculoskeletal: No: Pain Skin: No Rash Neurologic: No: Weakness Psychiatric: No: Depression Endocrine: No: Polydipsia Hematologic/Lymphatic: No: Easy Bruising Physical Exam Narrative GENERAL: Well-nourished, well-developed patient in no apparent distress. SKIN: Focused skin assessment reveals no rash and nodules. Skin is Warm and dry. HEAD: Atraumatic. Normocephalic. EYES: Pupils equal and round. No scleral icterus. No injection or drainage. ENT: No nasal bleeding or discharge. Mucous membranes pink and moist. NECK: Trachea midline. No JVD. CARDIOVASCULAR: Regular rate and rhythm. No murmur appreciated. RESPIRATORY: No accessory muscle use. Clear to auscultation. Breath sounds equal bilaterally. GASTROINTESTINAL: Abdomen soft, non-tender, nondistended. Hepatic and splenic margins not palpable. MUSCULOSKELETAL: No obvious deformities. No clubbing. No cyanosis. No edema. NEUROLOGICAL: Awake and alert. No obvious cranial nerve deficits. Motor grossly within normal limits. Normal speech. PSYCHIATRIC: Appropriate mood and affect; insight and judgment normal. Rectal: No fissure. No external hemorrhoid. Data Data Last Documented VS Vital Signs Date Time Temp Pulse Resp B/P (MAP) Pulse Ox O2 Delivery O2 Flow Rate FiO2 11/15/17 12:47 99.1 92 18 138/88 (105) 98 Orders Orders Complete Blood Count With Diff (11/15/17 13:02) Iv Access Insert/Monitor (11/15/17 13:02) Sodium Chloride 0.9% Flush (Ns Flush) (11/15/17 13:15) [facility] Medical Decision Making Medical Screen Exam Complete: Yes Emergency Medical Condition: Yes Medical Record Reviewed: Yes Differential Diagnosis Diverticulosis, internal hemorrhoid, colitis Narrative Course I have reviewed the patient's electronic medical record. Reviewed her visit from 2 weeks ago. Hemoglobin was 13.1 Patient's abdomen is soft and benign and nontender Vital signs are normal IV placed and CBC sent Chu Bernal MD Nov 15, 2017 13:09
[2017-11-15] MEDS ORDERED: SODIUM CHLORIDE 0.9% FLUSH 10 ML FLUSH IVF PRN (13:15)
[2017-11-15 13:33] LABS: AUTOMATED NEUTROPHIL # 3.2 TH/MM3 (1.8-7.7); BASOPHIL # 0.1 TH/MM3 (0-0.2); BASOPHIL % 1.1 % (0.0-2.0); EOSINOPHIL # 0.4 TH/MM3 (0-0.4); EOSINOPHIL % 7.7 % (0.0-4.0); HEMATOCRIT 35.1 % (35.0-46.0); HEMOGLOBIN 11.9 GM/DL (11.6-15.3); LYMPH % 25.6 % (9.0-44.0); LYMPHOCYTE # 1.4 TH/MM3 (1.0-4.8); MEAN CELL VOLUME 86.7 FL (80.0-100.0); MEAN CORPUSCULAR HEMOGLOBIN 29.5 PG (27.0-34.0); MEAN PLATELET VOLUME 9.4 FL (7.0-11.0); MONO % 4.8 % (0.0-8.0); MONOCYTE # 0.3 TH/MM3 (0-0.9); NEUT % 60.8 % (16.0-70.0); PLATELET COUNT 166 TH/MM3 (150-450); RED BLOOD COUNT 4.05 MIL/MM3 (4.00-5.30); RED CELL DISTRIBUTION WIDTH 12.4 % (11.6-17.2); WHITE BLOOD COUNT 5.4 TH/MM3 (4.0-11.0)
--- NOTE | 2017-11-17 00:12 | EKG ---
Date Performed: 11/15/2017 Time Performed: 12:50:43 PTAGE: 47 years EKG: Sinus rhythm NONSPECIFIC T-WAVE ABNORMALITY BORDERLINE ECG PREVIOUS TRACING : 10/03/2017 16.12 Since the prior tracing, there has been no significant jin DOCTOR: Bonilla Morris Interpretating Date/Time 11/17/2017 00:10:37
== END 2017-11-15 14:09 | disposition home or self-care (01) ==
LOC: PHED 12:39
DX: K62.5 Hemorrhage of anus and rectum (principal); R94.31 Abnormal electrocardiogram [ECG] [EKG]; M06.9 Rheumatoid arthritis, unspecified; M79.7 Fibromyalgia; F31.9 Bipolar disorder, unspecified; Z79.82 Long term (current) use of aspirin
CPT/HCPCS: 85025; 93005; 99283